=== PATIENT | female | born 1960 | race African-American/Black ===

== ENCOUNTER 2021-04-06 11:28 | Observation (INO) | payer OTHER ==
--- OUTSIDE RECORDS SUMMARY | 2021-04-06 11:33 | XMS REPORT | Continuity of Care Document ---
:1960 Author Organization [facility] t Address [address] [place] [address] Care Team Providers Name Role Phone Neptali Rosado Attending Clinician Unavailable MANDIE Attending Clinician Unavailable MANDIE Attending Clinician Unavailable Joseph PENA Attending Clinician Unavailable Doctor Unassigned, Name Attending Clinician Unavailable SANGITA PENNY Attending Clinician Unavailable CHERYL RAM Attending Clinician Unavailable [place] Penny MD Attending Clinician Cheryl Ram MD Attending Clinician Pcp-Lab Attending Clinician Unavailable Payers Payer Name Policy Type Policy Number Effective Date Expiration Date Sunshine baum [facility] Vino Volo [id number] 2020 00:00:00 SPRING Problems Condition Condition Condition Status Onset Resolution Last Treating Co mments Source Name Details Category Date Date Treatment Clinician Date Scleroderm Scleroderm Disease Active 2019-0 U nivers a a 1-10 ity of 00:00: [address] Skin Skin Disease Active 2019-0 Univers thickening thickening 1-10 it y of 00:00: [address] Contracept Contracept Disease Active 2015- [place] Well woman Well woman Disease Active 2015- U nivers exam exam 07-19 ity of 00:00: [address] Contracept Contracept Disease Active 2015[place] [address] [place] [address] History of History of Disease Active 2015-0 U nivers tubal tubal 07-19 ity of ligation ligation 00:00: [place] 00 [facility] Obese Obese Disease Active Univers 5-31 ity of 00:00: [place] 00 [facility] Allergies, Adverse Reactions, Alerts Allergy Allergy Status Severity Reaction(s) Onset Inactive Treating Comm ents Source Name Type Date Date Clinician NO KNOWN Drug Active Univers ALLERGIE Class ity of S [facility] Social History Social Habit Start Date Stop Date Quantity Comments Source Exposure to Not sure [facility] SARS-CoV-2 [facility] (event) Branch Tobacco use and 2020-07-30 2020-07-30 Never used Universit y of exposure 00:00:00 00:00:00 [facility] Alcohol intake 2020-07-30 2020-07-30 Current University 00:00:00 00:00:00 non-drinker of [facility] alcohol [place] (finding) Sex Ass[birth year] At [birth year] Universit y of 00:00:00 00:00:00 [facility] Smoking Status Start Date Stop Date Source Never smoker [facility] Medications Ordered Filled Start Stop Current Ordering Indication Dosage Frequency Signature Comments Components Source Medication Medication Date Date Medication? Clinician (SIG) Name Name amLODIPine Yes [id number] 5mg Take 1 Univers 5 mg tablet 6-11 tablet by ity of 00:00: mouth [place] 00 daily. Medical Branch omeprazole Yes [id number] 20mg Take 1 Univers 20 mg 6-11 capsule by ity of capsule 00:00: mouth [place] 00 daily. Medical Branch amLODIPine Yes [id number] 5mg Take 1 Univers 5 mg tablet 6-11 tablet by ity of 00:00: mouth [place] 00 daily. Medical Branch omeprazole Yes [id number] 20mg Take 1 Univers 20 mg 6-11 capsule by ity of capsule 00:00: mouth [place] 00 daily. Medical Branch amLODIPine Yes [id number] 5mg Take 1 Univers 5 mg tablet 6-11 tablet by ity of 00:00: mouth [place] 00 daily. Medical Branch omeprazole Yes [id number] 20mg Take 1 Univers 20 mg 6-11 capsule by ity of capsule 00:00: mouth [place] 00 daily. Medical Branch amLODIPine Yes [id number] 5mg Take 1 Univers 5 mg tablet 6-11 tablet by ity of 00:00: mouth [place] 00 daily. Medical Branch omeprazole 2020-0 Yes [id number] 20mg Take 1 Univers 20 mg 6-11 capsule by ity of capsule 00:00: mouth [place] 00 daily. Medical Branch amLODIPine 2020-0 Yes [id number] 5mg Take 1 Univers 5 mg tablet 6-11 tablet by ity of 00:00: mouth [place] 00 daily. Medical Branch omeprazole 2020-0 Yes [id number] 20mg Take 1 Univers 20 mg 6-11 capsule by ity of capsule 00:00: mouth [place] 00 daily. Medical Branch amLODIPine 2020-0 Yes [id number] 5mg Take 1 Univers 5 mg tablet 6-11 tablet by ity of 00:00: mouth [place] 00 daily. Medical Branch omeprazole 2020-0 Yes [id number] 20mg Take 1 Univers 20 mg 6-11 capsule by ity of capsule 00:00: mouth [place] 00 daily. Medical Branch amLODIPine 2020-0 Yes [id number] 5mg Take 1 Univers 5 mg tablet 6-11 tablet by ity of 00:00: mouth [place] 00 daily. Medical Branch omeprazole 2020-0 Yes [id number] 20mg Take 1 Univers 20 mg 6-11 capsule by ity of capsule 00:00: mouth [place] 00 daily. Medical Branch amLODIPine 2020-0 Yes [id number] 5mg Take 1 Univers 5 mg tablet 6-11 tablet by ity of 00:00: mouth [place] 00 daily. Medical Branch omeprazole 2020-0 Yes [id number] 20mg Take 1 Univers 20 mg 6-11 capsule by ity of capsule 00:00: mouth [place] 00 daily. Medical Branch amLODIPine 2020-0 Yes [id number] 5mg Take 1 Univers 5 mg tablet 6-11 tablet by ity of 00:00: mouth [place] 00 daily. Medical Branch omeprazole 2020-0 Yes [id number] 20mg Take 1 Univers 20 mg 6-11 capsule by ity of capsule 00:00: mouth [place] 00 daily. Medical Branch omeprazole 2018-0 Yes [id number] 20mg Take 1 Univers 20 mg 8-15 capsule by ity of capsule 00:00: mouth [place] 00 daily. Medical Branch amLODIPine 2018-0 Yes [id number] 5mg Take 1 Univers 5 mg tablet 8-15 tablet by ity of 00:00: mouth [place] 00 daily. Medical Branch omeprazole 2019-0 Yes [id number] 20mg Take 1 Univers 20 mg 8-15 capsule by ity of capsule 00:00: mouth [place] 00 daily. Medical Branch amLODIPine 2019-0 Yes [id number] 5mg Take 1 Univers 5 mg tablet 8-15 tablet by ity of 00:00: mouth [place] 00 daily. Medical Branch omeprazole 2019-0 Yes [id number] 20mg Take 1 Univers 20 mg 8-15 capsule by ity of capsule 00:00: mouth [place] 00 daily. Medical Branch amLODIPine 2019-0 Yes [id number] 5mg Take 1 Univers 5 mg tablet 8-15 tablet by ity of 00:00: mouth [place] 00 daily. Medical Branch omeprazole 2018-0 2020- No [id number] 20mg Take 1 Univers 20 mg 8-15 06-11 capsule by ity of capsule 00:00: 00:00 mouth [place] 00 :00 daily. Medical Branch amLODIPine 2018-0 2020- No [id number] 5mg Take 1 Univers 5 mg tablet 8-15 06-11 tablet by it y of 00:00: 00:00 mouth [place] 00 :00 daily. Medical Branch omeprazole 2018-0 2020- No [id number] 20mg Take 1 Univers 20 mg 8-15 06-11 capsule by ity of capsule 00:00: 00:00 mouth [place] 00 :00 daily. Medical Branch amLODIPine 2018-0 2020- No [id number] 5mg Take 1 Univers 5 mg tablet 8-15 06-11 tablet by it y of 00:00: 00:00 mouth [place] 00 :00 daily. Medical Branch omeprazole 2018-0 2020- No [id number] 20mg Take 1 Univers 20 mg 8-15 06-11 capsule by ity of capsule 00:00: 00:00 mouth [place] 00 :00 daily. Medical Branch amLODIPine 2018-0 1- No [id number] 5mg Take 1 Univers 5 mg tablet 8-15 06-11 tablet by it y of 00:00: 00:00 mouth [place] 00 :00 daily. Medical Branch omeprazole 2018-0 2020- No [id number] 20mg Take 1 Univers 20 mg 8-15 06-11 capsule by ity of capsule 00:00: 00:00 mouth [place] 00 :00 daily. Medical Branch amLODIPine 2018-0 1- No [id number] 5mg Take 1 Univers 5 mg tablet 8-15 06-11 tablet by it y of 00:00: 00:00 mouth [place] 00 :00 daily. Medical Branch omeprazole 2018-2020- No [id number] 20mg Take 1 Univers 20 mg 8-15 06-11 capsule by ity of capsule 00:00: 00:00 mouth [place] 00 :00 daily. Medical Branch amLODIPine 2018-2020- No [id number] 5mg Take 1 Univers 5 mg tablet 8-15 06-11 tablet by it y of 00:00: 00:00 mouth [place] 00 :00 daily. Medical Branch omeprazole 2018-2020- No [id number] 20mg Take 1 Univers 20 mg 8-15 06-11 capsule by ity of capsule 00:00: 00:00 mouth [place] 00 :00 daily. Medical Branch amLODIPine 2018-2020- No [id number] 5mg Take 1 Univers 5 mg tablet 8-15 -11 tablet by it y of 00:00: 00:00 mouth [place] 00 :00 daily. Medical Branch traMADOL 50 2019-0 Yes 50mg Take 50 mg Univers mg tablet 1-10 by mouth ity of 16:18: every 6 [place] 02 (six) Medical hours as Branch needed. traMADOL 50 2019-0 Yes 50mg Take 50 mg Univers mg tablet 1-10 by mouth ity of 16:18: every 6 [place] 02 (six) Medical hours as Branch needed. traMADOL 50 2019-0 Yes 50mg Take 50 mg Univers mg tablet 1-10 by mouth ity of 16:18: every 6 [place] 02 (six) Medical hours as Branch needed. traMADOL 50 2019-0 Yes 50mg Take 50 mg Univers mg tablet 1-10 by mouth ity of 16:18: every 6 [place] 02 (six) Medical hours as Branch needed. traMADOL 50 2019-0 Yes 50mg Take 50 mg Univers mg tablet 1-10 by mouth ity of 16:18: every 6 [place] 02 (six) Medical hours as Branch needed. traMADOL 50 2019-0 Yes 50mg Take 50 mg Univers mg tablet 1-10 by mouth ity of 16:18: every 6 [place] 02 (six) Medical hours as Branch needed. traMADOL 50 2019-0 Yes 50mg Take 50 mg Univers mg tablet 1-10 by mouth ity of 16:18: every 6 [place] 02 (six) Medical hours as Branch needed. traMADOL 50 2019-0 Yes 50mg Take 50 mg Univers mg tablet 1-10 by mouth ity of 16:18: every 6 [place] 02 (six) Medical hours as Branch needed. traMADOL 50 2019-0 Yes 50mg Take 50 mg Univers mg tablet 1-10 by mouth ity of 16:18: every 6 [place] 02 (six) Medical hours as Branch needed. traMADOL 50 2019-0 Yes 50mg Take 50 mg Univers mg tablet 1-10 by mouth ity of 16:18: every 6 [place] 02 (six) Medical hours as Branch needed. traMADOL 50 2019-0 Yes 50mg Take 50 mg Univers mg tablet 1-10 by mouth ity of 16:18: every 6 [place] 02 (six) Medical hours as Branch needed. traMADOL 50 2019-0 Yes 50mg Take 50 mg Univers mg tablet 1-10 by mouth ity of 16:18: every 6 [place] 02 (six) Medical hours as Branch needed. traMADOL 50 2019-0 Yes 50mg Take 50 mg Univers mg tablet 1-10 by mouth ity of 16:18: every 6 [place] 02 (six) Medical hours as Branch needed. amLODIPine 2019- Yes [id number] 5mg Take 1 Univers 5 mg tablet 1-10 tablet by ity of 00:00: mouth [place] 00 daily. Medical Branch omeprazole Yes [id number] 20mg Take 1 Univers 20 mg 1-10 capsule by ity of capsule 00:00: mouth [place] 00 daily. Medical Branch amLODIPine 2019- No [id number] 5mg Take 1 Univers 5 mg tablet 1-10 08-15 tablet by it y of 00:00: 00:00 mouth [place] 00 :00 daily. Medical Branch omeprazole 2019- No [id number] 20mg Take 1 Univers 20 mg 1-10 08-15 capsule by ity of capsule 00:00: 00:00 mouth [place] 00 :00 daily. Medical Branch amLODIPine 2019- No [id number] 5mg Take 1 Univers 5 mg tablet 1-10 08-15 tablet by it y of 00:00: 00:00 mouth [place] 00 :00 daily. Medical Branch omeprazole 2019- No [id number] 20mg Take 1 Univers 20 mg 1-10 08-15 capsule by ity of capsule 00:00: 00:00 mouth [place] 00 :00 daily. Medical Branch Immunizations Ordered Filled Immunization Date Status Comments [facility] e Immunization Name Name [facility] 2015-07-20 Completed University of 00:00:00 [facility] 2015-07-20 Completed University of 00:00:00 [facility] TD 2015-07-20 Completed University of 00:00:00 [facility] TD 2015-07-20 Completed University of 00:00:00 [facility] 2015-07-20 Completed University of 00:00:00 [facility] 2015-07-20 Completed University of 00:00:00 [facility] 2015-07-20 Completed University of 00:00:00 [facility] TDAP 2015-07-20 Completed University of 00:00:00 [facility] 2015-07-20 Completed University of 00:00:00 [facility] 2015-07-20 Completed University of 00:00:00 [facility] 2015-07-20 Completed University of 00:00:00 [facility] 2015-07-20 Completed University of 00:00:00 [facility] 2015-07-20 Completed University of 00:00:00 [facility] Vital Signs Vital Name Observation Time Observation Value Comments Source Heart rate 2020-07-29 15:33:00 75 /min [facility] Body temperature 2020-07-29 15:33:00 36.22 Toshia [facility] Respiratory rate 2020-07-29 15:33:00 18 /min [facility] Body height 2020-07-29 15:33:00 170.2 cm [facility] Body weight 2020-07-29 15:33:00 94.802 kg [facility] BMI 2020-07-29 15:33:00 32.73 kg/m2 [facility] Oxygen saturation in 2020-07-29 15:33:00 96 /min room air University Arterial blood by [facility] Pulse oximetry Branch Systolic blood 2018-10-03 15:23:00 137 mm[Hg] Univer sity of pressure [facility] Diastolic blood 2018-10-03 15:23:00 86 mm[Hg] Unive rsity of pressure [facility] Heart rate 2018-10-03 15:23:00 101 /min [facility] Body temperature 2018-10-03 15:23:00 36.33 Toshia [facility] Respiratory rate 2018-10-03 15:23:00 16 /min [facility] Body height 2018-10-03 15:23:00 170.2 cm [facility] Body weight 2018-10-03 15:23:00 95.936 kg [facility] BMI 2018-10-03 15:23:00 33.13 kg/m2 [facility] Oxygen saturation in 2018-10-03 15:23:00 100 /min [facility] blood by [facility] Pulse oximetry Branch Procedures Procedure Date / Time Performed Performing Clinician [facility] lucita PULMONARY FUNCTION 2020-09-13 17:49:10 Doctor Unassigned, No [facility] TEST (RESULTS) [facility] CT THORAX WO CONTRAST 2020-08-17 19:33:41 Milad Penny U [facility] NOTICE OF PRIVACY 2020-08-17 19:01:43 Doctor Unassigned, No [facility] PRACTICES [facility] CONSENT/REFUSAL FOR 2020-08-17 18:58:43 Doctor Unassigned, No [facility] DIAGNOSIS AND [facility] TREATMENT ASSIGNMENT OF BENEFITS 2020-08-17 18:58:24 Doctor Unassigned, No [facility] XR HAND 3+ VW 2020-07-29 17:12:15 Milad Penny [facility] BILATERAL [facility] PATIENT FINANCIAL 2018-10-03 15:12:03 Doctor Unassigned, No [facility] POLICY [facility] Encounters Start End Encounter Admission Attending Care Care Encounter Source Date/Time Date/Time Type Type Clinicians Facility Department ID 2021-03-16 Outpatient Shereen Rosado [facility] [id number] 14:24:19 [id number] [facility] 2021-03-16 Outpatient Shereen Roasdo [facility] [id number] 14:21:32 [id number] [facility] 2021-03-16 Outpatient Shereen Rosado [facility] [id number] 14:01:01 [id number] [facility] 2021-03-16 Outpatient Rosado, Na [facility] [id number] 13:56:51 [id number] [facility] 2021-03-16 Outpatient Rosado, Na [facility] [id number] 13:47:23 [id number] [facility] 2021-03-16 Outpatient Rosado, Na [facility] [id number] 13:13:12 [id number] [facility] 2021-03-16 Outpatient Rosado, Na [facility] [id number] 12:42:20 [id number] [facility] 2021-03-23 2021-03-23 ambulatory [facility] [id number] [facility] 2021-03-02 2021-03-02 ambulatory [facility] [id number] [facility] 2021-01-25 2021-01-25 ambulatory [facility] [id number] [facility] 2020-11-25 2020-11-25 Outpatient [facility] [id number] [facility] 2020-10-14 2020-10-14 Outpatient R TETE LOCKWOOD [facility] [id number] Univers 15:00:00 15:00:00 TETE LOCKWOOD [id number] [facility] 2020-09-13 2020-09-13 Outpatient R [facility] [id number] Univers 14:00:00 14:00:00 [id number] [facility] 2020-09-13 2020-09-13 Outpatient R BECKY [facility] [id number] Univers 14:00:00 14:00:00 NORY [facility] 2020-09-13 2020-09-13 Orders Doctor JOYCE [id number] Univers 00:00:00 00:00:00 Only Unassigned, [place] [id number] [facility] [id number] [facility] [id number] [facility] 009 Branch 2020-08-26 2020-08-26 Outpatient R ZOHAIB, [facility] [id number] Univers 10:00:00 10:00:00 MILAD [id number] ity [facility] 2020-08-26 2020-08-26 Outpatient R ZOHAIB, [facility] [id number] Univers 10:00:00 10:00:00 MILAD [facility] 2020-08-24 2020-08-24 Outpatient R SUKI [facility] [id number] Univers 09:00:00 09:00:00 ZAHIRA [id number] ity o [facility] 2020-08-24 2020-08-24 Outpatient R SUKI, [facility] [id number] Univers 09:00:00 09:00:00 [facility] 2020-08-17 2020-08-17 Outpatient R ZOHAIB, [facility] [id number] Univers 16:00:00 16:00:00 MILAD [id number] [facility] 2020-08-17 2020-08-17 [facility] [id number] Univers 13:59:36 15:22:00 Encounter Milad Valdez [id number] ity of [facility] [id number] [facility] [id number] [facility] 801 Branch 2020-08-17 2020-08-17 [facility] [id number] Univers 00:00:00 00:00:00 [facility]-11 2020-08-11 Out[facility] [id number] [facility] 2020-08-09 2020-08-09 Case LUZ RamIT [id number] Univers 00:00:00 00:00:00 Management [facility] [id number] ity [id number] [id number] [facility] 084 Branch 2020-07-30 2020-07-30 Outpatient [facility] [id number] [facility] [facility] 2020-07-30 2020-07-30 Outpatient [facility] [id number] [facility] [facility] 2020-07-29 2020-07-29 [facility] [id number] [facility] 11:41:19 23:59:00 Encounter Milad PRIMARY [id number] ity [id number] [id number] De dical 807 Branch 2020-07-29 2020-07-29 Clinical Appeals Auditor Pcp-Lab [facility] [id number] [facility] 11:05:28 11:20:28 Visit Milad Penny [place] PRIMARY [id number] 10 it[id number] [id number] De dical 366 Branch 2020-07-29 2020-07-29 [facility] [id number] [facility] 10:11:15 10:31:15 Visit Milad PRIMARY [id number] it y [id number] [id number] De dical 086 Branch 2020-07-29 2020-07-29 [facility] [id number] Univers 10:20:00 10:20:00 MILAD [id number] ity of [facility] 2020-07-29 2020-07-29 [facility] [id number] Univers 10:20:00 10:20:00 MILAD ity of [facility] 2020-04-23 2020-04-23 Outpatient [facility] [id number] [facility] 00:[facility] 00:[facility]:00 Diamond abdi Outpati ent Clinics 2018-10-03 2018-10-03 Office Zohaib, [facility] [id number] Univers 10:15:09 11:11:32 Visit Milad PRIMARY [id number] it y [id number] [id number] De dical 6 Branch 2018-10-03 2018-10-03 Orders Doctor JOYCE [id number] Univers 00:00:00 00:00:00 Only Unassigned, [place] [id number] ity [place] [facility] [id number] [place] [id number] [address] Results Test Description Test Time Test Comments Results Result Comments Source PULMONARY FUNCTION TEST (RESULTS) 2020-09-13 17:49:10 Test Item Value Reference Range Interpretation Comme nts FVC Actual (test code = 3994) 1.70 L FEV1 Actual (test code = 3993) 1.48 L FEV1/FVC Actual (test code = 3995) 87 % [facility] [id number] 20:51:47 1. Pattern of fibrosing lung disease suspicious for fibrotic NSIP with orwithout patchy areas of organizing pneumonia, in keeping with CTD-ILD. 2. Scattered subcentimeter nodularity, intermingled with the areas ofreticulation, likely a component of the fibrosing lung disease. Attentionon follow-up. At this time no definite dominant nodules. 3. Diffuse patulous esophagus, associated with the underlyingcollagen-vascular disease. No significant hiatal hernia 4. No definite signs of pulmonary hypertension. 5. Mildly prominent bilateral axillary nodes, left greater than right,likely reactive.PROCEDURE: CT CHEST WITHOUT CONTRAST - CHEST PROTOCOL CLINICAL INDICATION: Systemic sclerosis [scleroderma] HIGH RESOLUTION CTscan thorax Comparison: ?Chest radiograph dated 07/29/2020 TECHNIQUE: Volumetric images of the chest were acquired (from lung apicesto bases) following a high resolution protocol: Supine inspiratory,expiratory images as well as prone inspiratory images were submitted forinterpretation.MIP axial images, coronal and sagittal reformats were alsosubmitted for interpretation Axial MIPs and coronal and sagittal MPR imageswere generated and reviewed.. FINDINGS: LUNGS AND PLEURA: The lung volumes are low. The patient has multiple patchyareas of peripheral irregular peribroncho- vascular no dularity andreticulation. Mild traction bronchiectasis and bronchiolectasis are notedparticularly inthe peridiaphragmatic regions. No honeycombing. No definite discrete pulmonary nodules. No consolidation. No pleuraleffusions. The expiratory images revealNo significant mosaic attenuation LYMPH NODES:Scattered small lymph nodes in both sides of the mediastinumand hilar regions. No evidence of intrathoracic lymphadenopathy. Mildlyprominent lymph nodes in the axillary regions up to 1 cm in short axis. MEDIASTINUM AND LOWER NECK: No central airway lesions are detected. Severepatulous esophagus. The included thyroid gland appears normal. HEART AND GREAT VESSELS: The heart is normal in size. No pericar dialabnormalities are identified. The RV to LV is normal. The pulmonary trunkis 2.9 cm. The thoracicaorta is normal in caliber, minimal atherosclerotic calcifiedplaque.No significant atherosclerotic calcifications of the coronaryvessels. The pulmonary trunk is normal in caliber. VISUALIZED UPPER ABDOMEN: The included solid organs and hollow viscusappear within normal limits. OSSEOUS STRUCTURES AND SOFT TISSUES: No focal osseous lesions are detected.The soft tissues including the breasts appear normal. [facility], Radiant Results Inft User - 08/17/2020 3:52 PM CDT PROCEDURE: CT CHEST WITHOUT CONTRAST - CHEST PROTOCOLCLINICAL INDICATION: Systemic sclerosis [scleroderma] HIGH RESOLUTION CTscan thorax Comparison: Chest radiograph dated 07/29/2020TECHNIQUE: Volumetric images of the chest were acquired (from lung apicesto bases) following a highresolution protocol: Supine inspiratory,expiratory images as well as prone inspiratory images were submitted forinterpretation. MIP axial images, coronal and sagittal reformats were alsosubmitted for interpretation Axial MIPs and coronal and sagittal MPR imageswere generated and reviewed..FINDINGS:LUNGS AND PLEURA: The lung volumes are low. The patient has multiple patchyareas of peripheral irregularperibroncho- vascular nodularity andreticulation. Mild traction bronchiectasis and bronchiolectasis are notedparticularly in the peridiaphragmatic regions. No honeycombing.No definite discrete pulmonary nodules. No consolidation. No pleuraleffusions.The expiratory images revealNo significant mosaic attenuationLYMPH NODES: Scattered small lymph nodes in both sides of the mediastinumand hilar regions. No evidence of intrathoracic lymphadenopathy. Mildlyprominent lymph nodes in the axillary regions up to 1 cm in short axis.MEDIASTINUM AND LOWER NECK: No central airway lesions are detected. Severepatulous esophagus. The included thyroid gland appears normal.HEART AND GREAT VESSELS: The heart is normalin size. No pericardialabnormalities are identified. The RV to LV is normal. The pulmonary trunkis 2.9 cm.The thoracic aorta is normal in caliber, minimal atherosclerotic calcifiedplaque.No significantatherosclerotic calcifications of the coronaryvessels. The pulmonary trunk is normal in caliber.VISUALIZED UPPER ABDOMEN: The included solid organs and hollow viscusappear within normal limits.OSSEOUS STRUCTURES AND SOFT TISSUES: No focal osseous lesions are detected.The soft tissues including the breasts appear normal.IMPRESSION1. Pattern of fibrosing lung disease suspicious for fibrotic NSIP with orwithout patchy areas of organizing pneumonia, in keeping with CTD-ILD.2. Scattered subcentimeter nodularity, intermingled with the areas ofreticulation, likely a component of the fibrosing lung disease. Attentionon follow-up. At this time no definite dominant nodules.3. Diffuse patulous esophagus, associated with the underlyingcollagen-vascular disease. No significant hiatal hernia4. No definite signs of pulmonary hypertension.5. Mildly prominent bilateral axillary nodes, left greater than right,likely reactive.[facility] [id number] 19:32:58Impression: Diffuse bilateral acro- osteolysis. End of Report. RL: [id number] Ordering Physician: MILAD PENNY. Procedure: XR HAND 3+ VW BILATERAL Comparison: None. History: for acro osteolysis, thanks . Findings: Well-corticated absence of most of the portions of the distal phalangesthroughout both hands consistent with the history of acro-osteolysis. 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 No fracture, dislocation, or bony erosion is identified. [facility], Radiant Results Inft User - 07/29/2020 2:34 PM CDT Ordering Physician: MILAD PENNY.Procedure: XR HAND 3+ VW BILATERALComparison: None.History: for acro osteolysis, thanks . Findings:Well-corticated absence of most of the portions of the distal phalangesthroughout both hands consistent with the history of acro-osteolysis. 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 [facility]
--- NOTE | 2021-04-06 15:09 | RAD REPORT ---
EXAM DESCRIPTION: RAD - Chest Single View - 04/06/2021 3:03 pm CLINICAL HISTORY: CHEST PAIN COMPARISON: Abdomen Pelvis W Contrast dated 03/23/2021 FINDINGS: Lines: None. Lungs: Bilateral interstitial and airspace disease. Pleural: Small effusions difficult to exclude. Cardiac: The heart size is within normal limits. Bones: No acute fractures. Other: IMPRESSION: Widespread bilateral airspace disease favored to represent pulmonary edema. Multifocal p neumonia less likely.
[2021-04-06 15:20] LABS: ALT/SGPT 28 U/L (12-78); AST/SGOT 29 U/L (15-37); Albumin 3.2 g/dL (3.4-5.0); Alkaline Phosphatase 72 U/L (45-117); BUN Blood Urea Nitrogen 15 mg/dL (7-18); Bicarbonate 24 mmol/L (21-32); Bilirubin Direct < 0.1 mg/dL (0-0.2); Bilirubin Total 0.3 mg/dL (0.2-1.0); Glucose Level 100 mg/dL (74-106); Magnesium 2.2 mg/dL (1.8-2.4); NT PRO-BNP 484 pg/mL (<125); Potassium 3.6 mmol/L (3.5-5.1); Sodium Level 141 mmol/L (136-145)
[2021-04-06 15:24] LABS: MPV 8.9 fL (7.6-11.3)
[2021-04-06 15:46] LABS: Protime INR 1.15
--- NOTE | 2021-04-06 15:52 | RAD REPORT ---
EXAM DESCRIPTION: CT - Chest For Pe Angio - 04/06/2021 3:35 pm CLINICAL HISTORY: Chest pain;Hemoptysis;SOB COMPARISON: No comparisons FINDINGS: Chest Wall: Enlarged axillary lymph nodes. Largest on the left measures 9 millimeters. Lungs: Scattered bilateral ground-glass opacities. Honeycombing in subpleural reticulation bilaterall y. Pleura: No significant effusions or pneumothorax. Mediastinum/cruz: Prominent hilar lymph nodes. Patulous distal esophagus. Pulmonary arteries/Aorta: No filling defect identified. No aortic aneurysm. Heart: No significant pericardial effusion. Normal heart size. Upper abdomen: No acute abnormality. Bones: No acute abnormality. All CT scans are performed using dose optimization technique as appropriate and may include automated exposure control or mA/KV adjustment according to patient size. IMPRESSION: Negative for pulmonary embolism. Background of chronic interstitial lung disease such as usual interstitial pneumonia (UIP) . Ground-glass opacities are noted which could reflect either sup erimposed infection, such as Covid-19, for an exacerbation. Hilar and axillary adenopathy may be reactive.
[2021-04-06 15:57] LABS: Blood Morphology Comment NOTED (NOT SEEN); Hypochromasia 1+; Platelet Estimate ADEQ
--- NOTE | 2021-04-06 16:54 | RAD REPORT ---
EXAM DESCRIPTION: US - Extrem Venous W Compress Vincenzo - 04/06/2021 4:48 pm CLINICAL HISTORY: Swelling COMPARISON: None. TECHNIQUE: Real-time sonographic evaluation of the bilateral lower extremity deep venous systems was performed. FINDINGS: Normal compressibility, flow augmentation, phasic flow and spontaneous flow is identified in both the left and right lower extremity deep venous systems. No intraluminal filling defects seen. IMPRESSION: No DVT in either lower extremity.
[2021-04-06] MEDS ORDERED: CEFTRIAXONE 1000 MG/VIAL ONE (17:44)
[2021-04-06] MEDS ORDERED: AZITHROMYCIN 500 MG INJ IVPB ONE (17:44)
[2021-04-06] MEDS ORDERED: NA CHLORIDE 0.9% 100 ML IV ONE (17:44)
[2021-04-06] MEDS ORDERED: FUROSEMIDE 20 MG/ 2ML VIAL ONE (17:44)
[2021-04-06] MEDS ORDERED: NA CHLORIDE 0.9% 250 ML ONE (17:44)
[2021-04-06 18:14] LABS: SARS-COV-2 RT PCR NEGATIVE (NEGATIVE)
--- NOTE | 2021-04-06 18:15 | ER ---
Nurse's Notes [facility] Name: Lissa Rivas Age: 60 yrs Sex: Female : 1960 Arrival Date: 04/06/2021 Time: 11:31 Bed 24 Private MD: Shereen Rosado Diagnosis: Chest pain, unspecified;Shortness of breath;Hemoptysis Presentation: 04/06 12:44 Chief complaint: Patient states: I think I messed up on taking my medicine yesterday jg9 morning I got hot and started coughing up blood x 3 episodes. I think it was because of my medicine because it says not to take with milk and I did (Flagyl \\T\\ Cipro). I called my PCP this morning and sh advised me to come to the ED. I am also having heaviness in my chest 07/29 and feel congested but I can't cough it up. Patient did not take the medication today. Coronavirus screen: Vaccine status: Patient reports receiving the 2nd dose of the covid vaccine. Ebola Screen: Patient negative for fever greater than or equal to 101.5 degrees Fahrenheit, and additional compatible Ebola Virus Disease symptoms Patient denies exposure to infectious person. Patient denies travel to an Ebola-affected area in the 21 days before illness onset. Initial Sepsis Screen: Does the patient meet any 2 criteria? HR > 90 bpm. Yes Does the patient have a suspected source of infection? No. Patient's initial sepsis screen is negative. Risk Assessment: Do you want to hurt yourself or someone else? Patient reports no desire to harm self or others. Onset of symptoms was April 06, 2021 at 01:00. 12:44 Method Of Arrival: Ambulatory 9 12:44 Acuity: JAMMIE 3 jg9 Triage Assessment: 12:48 General: Appears in no apparent distress. Behavior is calm. Pain: Complains of pain in jg9 chest. Historical: - Allergies: 12:48 Cymbalta; jg9 - PMHx: 12:48 Raynauds; jg9 - Immunization history:: Client reports receiving the 2nd dose of the Covid vaccine, Pneumococcal vaccine is not up to date, Flu vaccine is not up to date. - Social history:: Smoking status: Patient denies any tobacco usage or history of. Screenin:48 Abuse screen: Denies threats or abuse. Denies injuries from another. Nutritional jg9 screening: No deficits noted. Tuberculosis screening: No symptoms or risk factors identified. Fall Risk None identified. Assessment: 14:10 General: Appears in no apparent distress. comfortable, Behavior is calm, cooperative, cb5 appropriate for age. Pain: Complains of pain in chest Pain currently is 3 out of 10 on a pain scale. Neuro: No deficits noted. Cardiovascular: No deficits noted. Respiratory: No deficits noted. GI: No deficits noted. : No deficits noted. EENT: No deficits noted. Derm: No deficits noted. Musculoskeletal: No deficits noted. 15:00 Reassessment: Patient and/or family updated on plan of care and expected duration. Pain cb5 level reassessed. Patient is alert, oriented x 3, equal unlabored respirations, skin warm/dry/pink. 15:30 General: pt left ER department. cb5 16:51 General: pt arrived back to ER room # 19, obtained Covid 19 specimen sent to lab.. cb5 20:50 Reassessment: Patient and/or family updated on plan of care and expected duration. Pain ll3 level reassessed. Patient is alert, oriented x 3, equal unlabored respirations, skin warm/dry/pink. Vital Signs: 12:44 BP 182 / 93; Pulse 105; Resp 20 S; Temp 97.9; Pulse Ox 98% on R/A; Weight 97.52 kg (R); jg9 Height 5 ft. 7 in. (170.18 cm) (R); 16:57 BP 161 / 98; Pulse 100; Resp 16; Pulse Ox 98% ; Pain 0/10; cb5 18:00 BP 172 / 96; Pulse 110; Resp 16; Pulse Ox 98% ; Pain 0/10; cb5 19:00 BP 135 / 72; Pulse 105; Resp 23; Pulse Ox 100% ; ll3 20:00 BP 139 / 87; Pulse 96; Resp 17; Pulse Ox 99% ; ll3 12:44 Body Mass Index 33.67 (97.52 kg, 170.18 cm) jg9 ED Course: 11:31 Patient arrived in ED. mr 11:32 Shereen Rosado MD is Private Physician. mr 12:48 Triage completed. jg9 12:49 Arm band placed on right wrist. jg9 14:09 Emili Vallejo, RN is Primary Nurse. cb5 14:10 No provider procedures requiring assistance completed. cb5 14:11 Vinicius Dominique PA is PHCP. cp 14:11 Russ Hill MD is Attending Physician. cp 14:23 Bed in low position. Call light in reach. Side rails up X 1. cb5 14:35 Initial lab(s) drawn, by me, sent to lab. Inserted saline lock: 20 gauge in right kv1 antecubital area, using aseptic technique. 15:03 XRAY Chest (1 view) In Process Unspecified. EDMS 15:35 CT Chest For PE Angio In Process Unspecified. EDMS 16:30 US Extremity Venous W Compression Vincenzo In Process Unspecified. EDMS 16:57 COVID-19/FLU A+B (Document "Date of Onset" if Symptomatic) Sent. cb5 16:57 COVID swab sent to lab. kv1 17:35 First set of blood cultures drawn by me. kv1 18:00 Second set of blood cultures drawn by me. kv1 18:13 Jerson Vizcaino MD is Hospitalizing Provider. cp 18:29 Blood Culture Adult (2) Sent. cb5 19:07 Report given to Jorge L Ramirez cb5 Administered Medications: 17:50 Drug: Lasix (furosemide) 20 mg Route: IVP; Site: right antecubital; cb5 20:34 Follow up: Response: No adverse reaction ll3 18:01 Drug: Rocephin - (cefTRIAXone) 1 grams Route: IVPB; Infused Over: 30 mins; Site: right cb5 antecubital; 18:29 Drug: Zithromax (azithromycin) 500 mg Route: IVPB; Infused Over: 1 hrs; Site: right cb5 antecubital; 20:34 Follow up: Response: No adverse reaction; IV Status: Completed infusion; IV Intake: ll3 100ml 19:53 Drug: Albuterol - atroVENT (ipratropium) (3:1) (2.5 mg - 0.5 mg) 3 ml Route: Nebulizer; ll3 20:33 Follow up: Response: No adverse reaction; Marked relief of symptoms ll3 Intake: 20:34 IV: 100ml; Total: 100ml. ll3 Outcome: 18:14 Decision to Hospitalize by Provider. cp 04/07 16:14 Patient left the ED. Signatures: Dispatcher [employer] Mary Layton mr KentonRee, RN RN ss Vinicius Dominique PA PA cp Loubet, Lynsea, RN RN ll3 Cheryl Maradiaga RN RN jg9 Stephane Ashby kv1 Emili Vallejo RN RN cb5 Corrections: (The following items were deleted from the chart) 04/06 12:55 12:44 Chief complaint: Patient states: I think I messed up on taking my medicine this jg9 morning I got hot and started coughing up blood x 3 episodes. I think it was because of my medicine because it says not to take with milk and I did (Flagyl \\T\\ Cipro). I am having heaviness in my chest and feel congested but I can't cough it up. jg9 18:07 14:43 Lab(s) recollected, by me, sent to lab. First set of blood cultures drawn Second kv1 set of blood cultures drawn by me, kv1
--- NOTE | 2021-04-06 18:15 | EDPHYS ---
Physician Documentation [facility] Name: Lissa Rivas Age: 60 yrs Sex: Female : 1960 Arrival Date: 04/06/2021 Time: 11:31 Bed 24 Private MD: Shereen Rosado ED Physician Russ Hill HPI: 04/06 14:20 This 60 yrs old Black Female presents to ER via Ambulatory with complaints of Cough. cp 14:20 The patient or guardian reports cough, that is intermittent, with productive sputum, cp that is bloody. Onset: The symptoms/episode began/occurred this morning. 14:20 Associated signs and symptoms: Pertinent positives: chest pain, shortness of breath, cp Pertinent negatives: diarrhea, sore throat, vomiting. 14:20 Severity of symptoms: in the emergency department the symptoms are unchanged, despite cp home interventions. Historical: - Allergies: 12:48 Cymbalta; jg9 - PMHx: 12:48 Raynauds; jg9 - Immunization history:: Client reports receiving the 2nd dose of the Covid vaccine, Pneumococcal vaccine is not up to date, Flu vaccine is not up to date. - Social history:: Smoking status: Patient denies any tobacco usage or history of. ROS: 14:25 Constitutional: Negative for body aches, chills, fever, poor PO intake. cp 14:25 ENT: Negative for drainage from ear(s), ear pain, sore throat, difficulty swallowing, cp difficulty handling secretions. 14:25 Cardiovascular: Positive for chest pain, Negative for edema, palpitations. 14:25 Respiratory: Positive for cough, hemoptysis, Negative for wheezing. 14:25 Abdomen/GI: Negative for abdominal pain, nausea, vomiting, and diarrhea. 14:25 Back: Negative for radiated pain. 14:25 Neuro: Negative for altered mental status, headache, weakness. 14:25 All other systems are negative. cp Exam: 13:00 ECG was reviewed by the Attending Physician. cp 14:30 Constitutional: The patient appears in no acute distress, alert, awake, cp non-diaphoretic, non-toxic, well developed, well nourished. 14:30 Head/Face: Normocephalic, atraumatic. cp 14:30 Eyes: Periorbital structures: appear normal, Conjunctiva: normal, no exudate, no injection, Sclera: no appreciated abnormality, Lids and lashes: appear normal, bilaterally. 14:30 ENT: External ear(s): are unremarkable, Nose: is normal, Mouth: Lips: moist, Oral mucosa: moist, Posterior pharynx: Airway: no evidence of obstruction, patent. 14:30 Neck: ROM/movement: is normal, is supple, without pain, no range of motions limitations. 14:30 Chest/axilla: Inspection: normal. 14:30 Cardiovascular: Rate: tachycardic, Rhythm: regular, Edema: ankle edema, that is very mild, JVD: is not appreciated. 14:30 Respiratory: the patient does not display signs of respiratory distress, Respirations: normal, no use of accessory muscles, no retractions, labored breathing, is not present, Breath sounds: bronchial sounds, that are mild, are heard diffusely. 14:30 Abdomen/GI: Inspection: abdomen appears normal, Palpation: abdomen is soft and non-tender, in all quadrants. 14:30 Back: pain, is absent, ROM is normal. 14:30 Neuro: Orientation: to person, place \\T\\ time. Mentation: is normal, Motor: moves all fours, strength is normal, Sensation: is normal. Vital Signs: 12:44 BP 182 / 93; Pulse 105; Resp 20 S; Temp 97.9; Pulse Ox 98% on R/A; Weight 97.52 kg (R); jg9 Height 5 ft. 7 in. (170.18 cm) (R); 16:57 BP 161 / 98; Pulse 100; Resp 16; Pulse Ox 98% ; Pain 0/10; cb5 18:00 BP 172 / 96; Pulse 110; Resp 16; Pulse Ox 98% ; Pain 0/10; cb5 19:00 BP 135 / 72; Pulse 105; Resp 23; Pulse Ox 100% ; ll3 20:00 BP 139 / 87; Pulse 96; Resp 17; Pulse Ox 99% ; ll3 12:44 Body Mass Index 33.67 (97.52 kg, 170.18 cm) jg9 MDM: 14:12 Patient medically screened. cp 14:30 Differential Diagnosis: Bronchitis Influenza Viral Syndrome Pneumonia Other pulmonary cp embolism, pulmonary edema. 18:00 Data reviewed: vital signs, nurses notes, lab test result(s), EKG, radiologic studies, cp CT scan, plain films, and as a result, I will admit patient. 18:00 Test interpretation: by ED physician or midlevel provider: ECG, plain radiologic cp studies. Counseling: I had a detailed discussion with the patient and/or guardian regarding: the historical points, exam findings, and any diagnostic results supporting the discharge/admit diagnosis, lab results, radiology results, the need for further work-up and treatment in the hospital. 18:15 Physician consultation: Vel Ho was called at 18:10, was contacted at 18:10, regarding admission, to the telemetry unit. patient's condition. 04/06 14:21 Order name: Basic Metabolic Panel; Complete Time: 15:45 cp 04/06 15:45 Interpretation: Normal except: GFR 74; CL 111. cp 04/06 14:21 Order name: CBC with Diff; Complete Time: 17:01 cp 04/06 17:01 Interpretation: Normal except: RBC 4.90; HGB 10.6; HCT 34.0; MCV 69.3; MCH 21.7; MCHC cp 31.3. 04/06 14:21 Order name: LFT's; Complete Time: 15:45 cp 04/06 15:46 Interpretation: Normal except: ALB 3.2; GLOB 4.8; A/G 0.7. cp 04/06 14:21 Order name: Magnesium; Complete Time: 15:45 cp 04/06 14:21 Order name: NT PRO-BNP; Complete Time: 15:45 cp 04/06 15:46 Interpretation: Reviewed. cp 04/06 14:21 Order name: PT-INR; Complete Time: 17:01 cp 04/06 17:03 Interpretation: Reviewed. cp 04/06 14:21 Order name: Troponin HS; Complete Time: 15:45 cp 04/06 14:23 Order name: COVID-19/FLU A+B (Document "Date of Onset" if Symptomatic) cp 04/06 14:24 Order name: COVID-19/FLU A+B; Complete Time: 18:16 EDMS 04/06 15:56 Order name: Manual Differential; Complete Time: 17:01 EDMS 04/06 17:33 Order name: Procalcitonin cp 04/06 17:33 Order name: Lactate cp 04/06 17:33 Order name: Blood Culture Adult (2) cp 04/07 04:45 Order name: CBC with Automated Diff EDMS 04/06 14:21 Order name: XRAY Chest (1 view); Complete Time: 15:45 cp 04/06 15:11 Order name: CT Chest For PE Angio; Complete Time: 17:01 cp 04/06 15:47 Order name: US Extremity Venous W Compression Vincenzo; Complete Time: 17:01 cp 04/07 05:19 Order name: Comprehensive Metabolic Panel EDMS 04/07 05:19 Order name: Lipid Profile EDMS 04/07 05:19 Order name: C-Reactive Protein EDMS 04/07 05:19 Order name: T4 Free EDMS 04/07 05:19 Order name: Thyroid Stimulating Hormone EDMS 04/07 05:19 Order name: Transferrin Sat/Iron Binding EDMS 04/07 05:19 Order name: Ferritin EDMS 04/07 05:46 Order name: Procalcitonin EDMS 04/07 07:31 Order name: RAD EDMS 04/06 13:31 Order name: EKG - Nurse/Tech; Complete Time: 13:31 jg9 04/06 14:21 Order name: EKG; Complete Time: 14:22 cp 04/06 14:21 Order name: Cardiac monitoring; Complete Time: 14:24 cp 04/06 14:21 Order name: IV Saline Lock; Complete Time: 16:56 cp 04/06 14:21 Order name: Labs collected and sent; Complete Time: 16:57 cp 04/06 14:21 Order name: O2 Per Protocol; Complete Time: 16:57 cp 04/06 14:21 Order name: O2 Sat Monitoring; Complete Time: 16:57 cp EC:00 Rate is 102 beats/min. Rhythm is regular. AL interval is normal. QRS interval is cp normal. QT interval is normal. Interpreted by me. Reviewed by me. Administered Medications: 17:50 Drug: Lasix (furosemide) 20 mg Route: IVP; Site: right antecubital; cb5 20:34 Follow up: Response: No adverse reaction ll3 18:01 Drug: Rocephin - (cefTRIAXone) 1 grams Route: IVPB; Infused Over: 30 mins; Site: right cb5 antecubital; 18:29 Drug: Zithromax (azithromycin) 500 mg Route: IVPB; Infused Over: 1 hrs; Site: right cb5 antecubital; 20:34 Follow up: Response: No adverse reaction; IV Status: Completed infusion; IV Intake: ll3 100ml 19:53 Drug: Albuterol - atroVENT (ipratropium) (3:1) (2.5 mg - 0.5 mg) 3 ml Route: Nebulizer; ll3 20:33 Follow up: Response: No adverse reaction; Marked relief of symptoms ll3 Disposition Summary: 04/06/21 18:14 Hospitalization Ordered Hospitalization Status: Observation cp Provider: Jerson Vizcaino cp Condition: Stable cp Problem: new cp Symptoms: have improved cp Bed/Room Type: Standard cp Location: Telemetry/MedSurg (observation)(04/07/21 13:21) bd Room Assignment: 219(04/07/21 13:21) bd Diagnosis - Chest pain, unspecified cp - Shortness of breath cp - Hemoptysis cp Forms: - Medication Reconciliation Form cp - SBAR form cp Addendum: 04/09/2021 00:01 Co-signature as Attending Physician, Russ Hill MD I agree with the assessment and k dr plan of care. Signatures: Dispatcher [employer] EDMS Maureen Larios Kevin, MD MD kdr Attema, Lee, ENGLISH [employer] MEMBER-C ENGLISH [employer]ACULT[employer] MEMBER-Cla1 Vinicius Dominique PA PA cp Basinger, Emily RN RN eb1 Ashley Orellana RN RN ll3 Cheryl Maradiaga RN RN jg9 Emili Vallejo RN RN cb5 Corrections: (The following items were deleted from the chart) 04/06 19:19 18:14 Telemetry/MedSurg (observation) cp eb1 19:19 18:14 cp eb1 04/07 13:21 04/06 19:19 [facility] ER HOLD eb1 bd 04/07 13:21 04/06 19:19 ERHOLD- eb1 bd
--- NOTE | 2021-04-06 19:03 | P.HP ---
Certification for Inpatient Patient admitted to: Observation With expected LOS: <2 Midnights Patient will require the following post-hospital care: None Practitioner: I am a practitioner with admitting privileges, knowledge of patient current condition, hospital course, and medical plan of care. Services: Services provided to patient in accordance with Admission requirements found in Title 42 Section 412.3 of the Code of Federal Regulations Patient History Date of Service: 04/06/21 Primary Care Provider: Dr. Rosado Reason for admission: Dyspnea, hemoptysis History of Present Illness: 60-year-old -Filipino female with history of Raynaud's presented to the emergency department for shortness of breath, hemoptysis. Patient was seen earlier this month and diagnosed with diverticulitis was prescribed oral antibiotics Cipro/Flagyl which she stopped early as she felt they are making her worse. Patient also did have some bright blood per rectum at that time which is resolved a couple weeks ago. Patient reports that around 130 this morning she woke up and was having a lot of coughing, has had 3 episodes of hemoptysis she describes as small amounts of bright red blood mixed in with sputum/mucus. Patient was evaluated in the emergency department her labs were significant for hemoglobin 10.6 hematocrit 34 MCV 69.3 BNP 484 troponin negative pro Michael less than 0.05 lactic acid 1.1 Covid negative initial chest x-ray demonstrated widespread bilateral airspace disease favored to be pulmonary edema versus multi focal pneumonia, CT a to rule out pulmonary embolism was performed which demonstrated negative for PE background of chronic interstitial lung disease such as usual interstitial pneumonia. Groundglass opacities are noted which could reflect either superimposed infection such as COVID-19. Hilar and axillary adenopathy may be reactive. ED provider wishes to admit to observation for dyspnea, possible multifocal pneumonia versus pulmonary edema with hemoptysis. Allergies No Known Allergies Allergy (Unverified 11/02/15 14:59) - Past Medical/Surgical History Has patient received pneumonia vaccine in the past: No -: Raynaud's Past Surgical History: Patient denies surgical history Psychosocial/ Personal History: Patient lives at home with family - Family History Mother -: Cancer Brother -: Cancer - Social History Smoking Status: Never smoker Alcohol use: No CD- Drugs: No Caffeine use: No Place of Residence: Home Review of Systems 10-point ROS is otherwise unremarkable Respiratory: Cough, Shortness of Breath, Hemoptysis, Sputum, Wheezing, As per HPI Physical Examination - Physical Exam General: Alert, In no apparent distress, Oriented x3 HEENT: Atraumatic, PERRLA, Mucous membr. moist/pink, EOMI, Sclerae nonicteric Neck: Supple, 2+ carotid pulse no bruit, No LAD, Without JVD or thyroid abnormality Respiratory: Expiratory wheezes, Rhonchi/gurgles Cardiovascular: No edema, Regular rate/rhythm, Normal S1 S2 Capillary refill: <2 Seconds Gastrointestinal: Normal bowel sounds, No tenderness Musculoskeletal: No tenderness Integumentary: No rashes Neurological: Normal speech, Normal strength at 5/5 x4 extr, Normal tone, Normal affect - Studies Laboratory Data (last 24 hrs) 04/06/21 14:35: PT 13.2 H, INR 1.15 04/06/21 14:35: WBC 9.30, Hgb 10.6 L, Hct 34.0 L, Plt Count 266 04/06/21 14:35: Sodium 141, Potassium 3.6, BUN 15, Creatinine 0.94, Glucose 100, Magnesium 2.2, Total Bilirubin 0.3, AST 29, ALT 28, Alkaline Phosphatase 72 Assessment and Plan - Plan Assessment: Dyspnea, mild hemoptysis secondary to multifocal pneumonia versus pulmonary edema Microcytic anemia Plan: Dyspnea, mild hemoptysis secondary to multifocal pneumonia versus pulmonary edema: Patient on antibiotics Rocephin/Zithromax will also provide with small dose of Lasix 20 mg IV twice daily. Cardiology and pulmonology consulted. Echocardiogram ordered. Incentive spirometry. Will order sputum culture as well. Repeat chest x-ray tomorrow. Microcytic anemia: Patient with recent history of lower GI bleed which has resolved approximately 2 weeks ago. Will obtain iron studies. Patient denies any further GI bleeding. DVT PPX: SCDs given hemoptysis Code status: Full Discharge Plan: Home Plan to discharge in: 24 Hours - Advance Directives Does patient have a Living Will: No Does patient have a Durable POA for Healthcare: No - Code Status/Comfort Care Code Status Assessed: Yes (Full code) Critical Care: No Time Spent Managing Pts Care (In Minutes): 55
[2021-04-06] MEDS ORDERED: ALBUTEROL 2.5 MG/3 ML NEB SOL ONE (19:46)
[2021-04-06] MEDS ORDERED: IPRATROPIUM BROM 0.5MG/2.5ML ONE (19:46)
[2021-04-06] MEDS ORDERED: ONDANSETRON 4 MG/2 ML VIAL IV PRN (20:20)
[2021-04-06] MEDS ORDERED: ALBUTEROL 2.5 MG/3 ML NEB SOL NEB PRN (20:20)
[2021-04-06] MEDS ORDERED: TRAMADOL HCL 50 MG TAB PO PRN (20:20)
[2021-04-06] MEDS ORDERED: IPRATROPIUM BROM 0.5MG/2.5ML NEB PRN (20:20)
[2021-04-06] MEDS ORDERED: BENZONATATE 100 MG CAP PO PRN (20:20)
[2021-04-06 23:33] VITALS: O2SAT 100; BMI 34.0
[2021-04-07 04:42] LABS: Absolute Lymphocytes (CBC) 3.2 K/uL (0.7-4.9); Hematocrit 29.1 % (36.0-45.0); Lymphocytes % 42.2 % (15.3-44.8); MPV 9.2 fL (7.6-11.3); RBC Red Blood Cell Count 4.19 M/uL (3.86-4.86)
[2021-04-07 05:11] LABS: Albumin 2.7 g/dL (3.4-5.0); Bilirubin Total 0.3 mg/dL (0.2-1.0); C-Reactive Protein 11.1 mg/L (<3.00); Ferritin 111.9 ng/mL (8-388); Potassium 3.7 mmol/L (3.5-5.1); Protein, Total 6.8 g/dL (6.4-8.2); Thyroid Stimulating Hormone 1.63 uIU/mL (0.360-3.740)
[2021-04-07] MEDS: METOPROLOL TAR 25 MG TAB PO SCH ×2 (06:00→18:03)
[2021-04-07] MEDS ORDERED: METOPROLOL TAR 25 MG TAB ONE (06:12)
--- NOTE | 2021-04-07 06:33 | P.PN ---
Date of Service: 04/07/21 Subjective: no acute events overnight continues with some hemoptysis ROS: 10 point ROS as noted above, otherwise negative Physical exam GEN: Alert, oriented, NAD HEENT: Normal conjunctiva, sclera anicteric CV: Regular rate and rhythm, no edema Pulm: nonlabored, b/l crackles ABD: Soft, nontender, nondistended Neuro: Normal speech, normal affect Problem List Dyspnea, mild hemoptysis secondary to multifocal pneumonia versus pulmonary edema Microcytic anemia Continue antibiotics Seems to be doing slightly better Pulmonology consulted Cardiology consulted, echocardiogram ordered for today Continue incentive spirometry Follow-up cultures Hemoglobin slightly low, likely hemodilution. Repeat tomorrow Code: full Dispo: home in 24-48hrs Time Spent Managing Pts Care (In Minutes): 35
--- NOTE | 2021-04-07 07:31 | RAD REPORT ---
EXAM DESCRIPTION: RAD - Chest Single View - 04/07/2021 5:40 am CLINICAL HISTORY: eval pneumonia vs pulm edema COMPARISON: Chest Single View dated 04/06/2021; Chest For Pe Angio dated 04/06/2021 FINDINGS: Lines: None. Lungs: Moderate multifocal airspace disease is similar to 04/06/2021. Reference CT from 04/06/2021. M any opacities are related to a suspected chronic interstitial lung disease. Pleural: No significant pleural effusions or pneumothorax. Cardiac: The heart size is within normal limits. Bones: No acute fractures. Other: IMPRESSION: Similar moderate bilateral airspace opacities. The appearance today is more suggestive o f pneumonia versus acute exacerbation of interstitial lung disease
[2021-04-07] MEDS ORDERED: POTASSIUM CL SA 10 MEQ TAB PO ONE ×2 (08:11→09:00)
[2021-04-07] MEDS ORDERED: AZITHROMYCIN 500 MG INJ IVPB ONE (08:12)
[2021-04-07] MEDS ORDERED: FUROSEMIDE 40 MG/4 ML VIAL ONE (08:12)
[2021-04-07] MEDS ORDERED: NA CHLORIDE 0.9% 250 ML ONE (08:12)
[2021-04-07] MEDS: FUROSEMIDE 20 MG/ 2ML VIAL IV SCH ×2 (08:39→18:02)
[2021-04-07] MEDS: AZITHROMYCIN IV 500 MG in NA CHLORIDE 0.9% 250 ML IVPB SCH (08:40)
[2021-04-07] MEDS ORDERED: NA CHLORIDE 0.9% 100 ML IV ONE (09:59)
[2021-04-07] MEDS ORDERED: CEFTRIAXONE 1000 MG/VIAL ONE (09:59)
[2021-04-07] MEDS ORDERED: CEFTRIAXONE 1,000 MG in NA CHLORIDE 0.9% 50 ML IVPB SCH (10:00)
--- NOTE | 2021-04-07 13:45 | P.CNS ---
Date of Consult: 04/07/21 Reason for Consult: pneumonia Primary Care Provider: Dr. Rosado Chief Complaint: Dyspnea, hemoptysis History of Present Illness: Pt i s60 yrs of age AW acure SOB and hemoptysis, recetn hosp adnission for diverticulits, Doign better, never smoked. No prior Hx of hemoptysis Allergies No Known Allergies Allergy (Unverified 11/02/15 14:59) Home Medications: Ciprofloxacin HCl [Cipro 500 MG Tablet] 500 mg PO Q12HP 04/06/21 Metronidazole 500 mg PO DAILY 04/06/21 - Past Medical/Surgical History Diabetic: No -: Raynaud's Psychosocial/ Personal History: Patient lives at home with family - Family History Mother Medical History: Cancer Brother Medical History: Cancer - Social History Smoking Status: Never smoker Alcohol use: No CD- Drugs: No Caffeine use: No Place of Residence: Home Review of Systems 10-point ROS is otherwise unremarkable Respiratory: Cough, Shortness of Breath Physical Examination Temp Pulse Resp BP Pulse Ox 97.9 F 76 17 133/75 100 04/07/21 07:58 04/07/21 08:39 04/07/21 07:58 04/07/21 08:39 04/07/21 07:58 General: Alert, In no apparent distress, Oriented x3 HEENT: Atraumatic Neck: Supple Respiratory: Clear to auscultation bilaterally Cardiovascular: No edema, Regular rate/rhythm Gastrointestinal: Normal bowel sounds, Soft and benign Laboratory Data (last 24 hrs) 04/06/21 14:35: PT 13.2 H, INR 1.15 04/06/21 14:35: WBC 9.30, Hgb 10.6 L, Hct 34.0 L, Plt Count 266 04/06/21 14:35: Sodium 141, Potassium 3.6, BUN 15, Creatinine 0.94, Glucose 100, Magnesium 2.2, Total Bilirubin 0.3, AST 29, ALT 28, Alkaline Phosphatase 72 - Problems (1) Pneumonia Current Visit: Yes Status: Acute Plan: Age 60 hx of Raymauds aW hemoptysis an dSOb/ CT scan show difuuse ILD predom perioheral Tx wit levaquin 720 and pred for 10 days and f/u with me 2 wks/ normal WBC, Microcytic anemia will need to be evaluated for blood loss patient's TIBC and iron saturation are both low is probably iron deficient vital signs all stable saturation 100% on room air it appears she may be developing interstitial pneumonia Qualifiers: Pneumonia type: due to unspecified organism
--- NOTE | 2021-04-07 22:06 | CON ---
Date of Consultation: 04/07/2021 Reason For Consultation: Shortness of breath and cough. History Of Present Illness: This is a 60-year-old female, history of Raynaud syndrome, presented wit h shortness of breath and cough. Chest pain only when coughing. She denies having fever. Has some sore throat and she is having some hemoptysis or blood streaks in the mucus. Denies having lower ext remity edema or orthopnea or known cardiac history. Past Medical History: As outlined above. Medications: Refer reconciliation sheet for detailed list. Allergies: NO KNOWN DRUG ALLERGIES. Family History: No mention of coronary artery disease or cancer. Social History: Does not smoke or drink. Does not use any drugs. Review of Systems: All systems reviewed and they were negative except for mentioned in HPI. Physical Examination: VITAL SIGNS: Reviewed. HEENT: On exam, pupils are equal and reactive to light. Intact eye movements. No JVD. No cervical . Neck: Supple. Thyroid is not enlarged. Lungs: Clear to auscultation bilaterally. No rhonchi, rales, or crackles. No accessory muscle use. Heart: Regular rate and rhythm. No extra sounds. Abdomen: Soft and nontender. Bowel sounds positive. No organomegaly. No masses or hernia. No rig idity or rebound. Extremities: No clubbing or cyanosis. Intact pulses. Skin: No rashes. Neurologic: Alert, awake, and oriented x3. No focal associated. Lymph Nodes: No cervical adenopathy. Investigations: White blood count 7.6, hemoglobin 9.2. Creatinine is 0.85 and troponins negative. Assessment And Recommendations: Shortness of breath and cough. Chest x-ray, bilateral infiltrates, likely she has pneumonia. There are no signs of congestive heart failure. However, due to the hemop tysis, recommend echocardiogram to evaluate for any mitral valve disorder that is negative. Likely, her symptoms and hemoptysis are related to her pneumonia. Thank you for the consult. /KEVIN Voice ID: [id number] Report ID: [id number]
[2021-04-08 06:44] LABS: Bilirubin Total 0.4 mg/dL (0.2-1.0); Potassium 4.3 mmol/L (3.5-5.1); Protein, Total 7.5 g/dL (6.4-8.2)
[2021-04-08] MEDS: METOPROLOL TAR 25 MG TAB PO SCH (07:32)
--- NOTE | 2021-04-08 07:38 | ECHO ---
HEIGHT: 5 ft 7 in WEIGHT: 217 lb 0 oz DATE OF STUDY: 04/07/[address]: Vel Ho NP 2-DIMENSIONAL: YES M.MODE: YES DOPPLER: YES COLOR FLOW: YES TDS: NO PORTABLE: NO DEFINITY: NO BUBBLE STUDY: NO DIAGNOSIS: DYSPNEA CARDIAC HISTORY: CATHERIZATION: NO SURGERY: NO PROSTHETIC VALVE: NO PACEMAKER: NO MEASUREMENTS (cm) DIASTOLIC (NORMALS) SYSTOLIC (NORMALS) IVSd 1.0 (0.6-1.2) LA Diam 2.8 (1.9-4.0) LVEF 60-65% LVIDd 4.3 (3.5-5.7) LVIDs 2.7 (2.0-3.5) %FS 37% LVPWd 1.1 (0.6-1.2) Ao Diam 2.3 (2.0-3.7) 2 DIMENSIONAL ASSESSMENT: RIGHT ATRIUM: NORMAL LEFT ATRIUM: NORMAL RIGHT VENTRICLE: NORMAL LEFT VENTRICLE: NORMAL TRICUSPID VALVE: MITRAL VALVE: PULMONIC VALVE: NORMAL AORTIC VALVE: NORMAL PERICARDIAL EFFUSION: NONE AORTIC ROOT: NORMAL LEFT VENTRICULAR WALL MOTION: NORMAL DOPPLER/COLOR FLOW: MILD MITRAL AND TRICUSPID REGURGITATION. COMMENTS: NORMAL LEFT VENTRICULAR EJECTION FRACTION 60-65%. NORMAL WALL MOTION. MILD TRICUSPID AND MITRAL REGURGITATION. RIGHT VENTRICULAR SYSTOLIC PRESSURE IS NORMAL < 35 mmHg. MILD DIASTOLIC DYSFUNCTION. TECHNOLOGIST: Sofiya JAMES
[2021-04-08 07:53] LABS: Absolute Lymphocytes (CBC) 2.8 K/uL (0.7-4.9); Hematocrit 31.2 % (36.0-45.0); Lymphocytes % 36.9 % (15.3-44.8); MPV 8.5 fL (7.6-11.3); RBC Red Blood Cell Count 4.49 M/uL (3.86-4.86)
[2021-04-08] MEDS: FUROSEMIDE 20 MG/ 2ML VIAL IV SCH (09:12)
[2021-04-08] MEDS: AZITHROMYCIN IV 500 MG in NA CHLORIDE 0.9% 250 ML IVPB SCH (09:12)
[2021-04-08 09:19] VITALS: BP 129/77; TEMP 97.2
--- NOTE | 2021-04-08 15:45 | PN ---
Date of Progress Note: 04/08/2021 Ms. Rivas came in with shortness of breath, possible pneumonia, possible congestive heart failure. Dr. Anna saw her and recommended a 2D echocardiogram to rule out mitral valve disorder. Her echoc ardiogram was unremarkable with a normal ejection fraction. There was no cardiomyopathy, effusion, w all motion abnormalities or vegetation. We still think her problem with breathing was secondary to p neumonia. She can go home whenever it is okay with her admitting physician. We will see her on an a s-needed basis. VAHE/KEVIN Voice ID: [id number] Report ID: [id number]
--- NOTE | 2021-04-08 17:40 | P.DS ---
Admission Date: 04/06/21 Discharge Date: 04/08/21 Primary Care Provider: Dr. Rosado Disposition: ROUTINE DISCHARGE Discharge Condition: GOOD Reason for Admission: Dyspnea, hemoptysis Consultations: Pulmonology Cardiology Procedures: Problem List Dyspnea, mild hemoptysis secondary to multifocal pneumonia Microcytic anemia, iron deficiency Brief History of Present Illness: 60-year-old -[place] African female with history of Raynaud's presented to the emergency department for shortness of breath, hemoptysis. Patient was seen earlier this month and diagnosed with diverticulitis was prescribed oral antibiotics Cipro/Flagyl which she stopped early as she felt they are making her worse. Patient also did have some bright blood per rectum at that time which is resolved a couple weeks ago. Patient reports that around 130 this morning she woke up and was having a lot of coughing, has had 3 episodes of hemoptysis she describes as small amounts of bright red blood mixed in with sputum/mucus. Patient was evaluated in the emergency department her labs were significant for hemoglobin 10.6 hematocrit 34 MCV 69.3 BNP 484 troponin negative pro Michael less than 0.05 lactic acid 1.1 Covid negative initial chest x-ray demonstrated widespread bilateral airspace disease favored to be pulmonary edema versus multi focal pneumonia, CT a to rule out pulmonary embolism was performed which demonstrated negative for PE background of chronic interstitial lung disease such as usual interstitial pneumonia. Groundglass opacities are noted which could reflect either superimposed infection such as COVID-19. Hilar and axillary adenopathy may be reactive. ED provider wishes to admit to observation for dyspnea, possible multifocal pneumonia versus pulmonary edema with hemoptysis. Hospital Course: Patient was found to have pneumonia. Pulmonology was consulted, recommended Levaquin for 7 days, and prednisone 10 mg twice a day for 10 days. She had improvement of her symptoms. She continued to have some mild hemoptysis, but was improving and minimal. Cardiology was consulted due to the chest discomfort. Troponins were negative, echocardiogram was within normal limits, no further recommendations. Deemed stable for discharge home Follow-up with pulmonology in 1 week Patient was found to have a mild microcytic anemia. Initial basic work-up seems consistent with iron deficiency. Vital Signs/Physical Exam: Temp Pulse Resp BP Pulse Ox 97.2 F 96 H 18 129/77 100 04/08/21 08:00 04/08/21 09:12 04/08/21 08:00 04/08/21 09:12 04/08/21 08:00 Physical exam GEN: Alert, oriented, NAD HEENT: Normal conjunctiva, sclera anicteric CV: Regular rate and rhythm, no edema Pulm: nonlabored respirations on room air ABD: Soft, nontender, nondistended Neuro: Normal speech, normal affect Laboratory Data at Discharge: WBC 7.50 K/uL (4.3-10.9) 04/08/21 07:28 Hgb 9.8 g/dL (12.0-15.0) L 04/08/21 07:28 Hct 31.2 % (36.0-45.0) L 04/08/21 07:28 Plt Count 246 K/uL (152-406) 04/08/21 07:28 PT 13.2 SECONDS (9.5-12.5) H 04/06/21 14:35 INR 1.15 04/06/21 14:35 Sodium 140 mmol/L (136-145) 04/08/21 05:54 Potassium 4.3 mmol/L (3.5-5.1) 04/08/21 05:54 BUN 15 mg/dL (7-18) 04/08/21 05:54 Creatinine 0.99 mg/dL (0.55-1.3) 04/08/21 05:54 Glucose 94 mg/dL (74-106) 04/08/21 05:54 Magnesium 2.2 mg/dL (1.8-2.4) 04/06/21 14:35 Total Bilirubin 0.4 mg/dL (0.2-1.0) 04/08/21 05:54 AST 29 U/L (15-37) 04/08/21 05:54 ALT 27 U/L (12-78) 04/08/21 05:54 Alkaline Phosphatase 65 U/L (45-117) 04/08/21 05:54 Triglycerides 43 mg/dL (<150) 04/07/21 03:53 Cholesterol 118 mg/dL (<200) 04/07/21 03:53 HDL Cholesterol 59 mg/dL (40-60) 04/07/21 03:53 Cholesterol/HDL Ratio 2.00 04/07/21 03:53 Home Medications: Metronidazole 500 mg PO DAILY 04/06/21 Benzonatate [Tessalon Perle*] 100 mg PO TID PRN 5 Days #15 cap 04/08/21 levoFLOXacin [Levaquin] 750 mg PO DAILY 7 Days #7 tab 04/08/21 predniSONE [Deltasone*] 10 mg PO BID 10 Days #20 tab 04/08/21 New Medications: predniSONE [Deltasone*] 10 mg PO BID 10 Days #20 tab levoFLOXacin [Levaquin] 750 mg PO DAILY 7 Days #7 tab Benzonatate [Tessalon Perle*] 100 mg PO TID PRN 5 Days #15 cap PRN Reason: Cough Physician Discharge Instructions: Patient was found to have pneumonia. Pulmonology was consulted, recommended Levaquin for 7 days, and prednisone 10 mg twice a day for 10 days. She had improvement of her symptoms. She continued to have some mild hemoptysis, but was improving and minimal. Cardiology was consulted due to the chest discomfort. Troponins were negative, echocardiogram was within normal limits, no further recommendations. Deemed stable for discharge home Follow-up with pulmonology in 1 week Patient was found to have a mild microcytic anemia. Initial basic work-up seems consistent with iron deficiency. Diet: Regular Activity: Ad all Followup: Liang Contreras MD [ACTIVE - CAN ADMIT] - Shereen Rosado DO [Primary Care Provider] - Time spent managing pt's care (in minutes): 45
== END 2021-04-08 11:30 | disposition home or self-care (01) ==
LOC: ER 11:28 → ERHOLD 19:34 → 2ND 04-07 16:11
PROVIDERS: ADMIT Hospitalist; ATTEND Hospitalist
DX: J18.9 Pneumonia, unspecified organism (principal); R04.2 Hemoptysis; D50.9 Iron deficiency anemia, unspecified; K57.92 Diverticulitis of intestine, part unspecified, without perforation or abscess without bleeding; I73.00 Raynaud's syndrome without gangrene; Z20.822 Contact with and (suspected) exposure to COVID-19; Z80.9 Family history of malignant neoplasm, unspecified
CPT/HCPCS: 96365; 93005; 93306; 87040 ×2; 85025 ×3; 80048; 36415 ×2; 83735; 85610; 80061; 80076; 83605; 84443; 84484; 84439; 82728; 83540; 80053 ×2; 84145 ×2; 83880; 0240U; 84466; 86140; 71275; 71045 ×2; 93970; 94010; 94640; 96375; 99284; 96366; Q9967; J1940 ×4; J0456 ×3; J7050 ×3; G0378 ×4

== ENCOUNTER 2021-05-22 21:29 | Emergency (ER) | payer OTHER ==
--- OUTSIDE RECORDS SUMMARY | 2021-05-22 21:34 | XMS REPORT | Continuity of Care Document ---
:1960 Author Organization [facility] t Address [address] [place] [address] Care Team Providers Name Role Phone Neptali Rosado Attending Clinician Unavailable MANDIE Attending Clinician Unavailable MANDIE Attending Clinician Unavailable Joseph PENA Attending Clinician Unavailable Doctor Unassigned, Name Attending Clinician Unavailable SANGITA PENYN Attending Clinician Unavailable CHERYL RAM Attending Clinician Unavailable [place] Penny MD Attending Clinician Cheryl Ram MD Attending Clinician Pcp-Lab Attending Clinician Unavailable Payers Payer Name Policy Type Policy Number Effective Date Expiration Date Sunshine baum [facility] [employer] [id number] 2020 00:00:00 SPRING Problems Condition Condition Condition Status Onset Resolution Last Treating Co mments Source Name Details Category Date Date Treatment Clinician Date Scleroderm Scleroderm Disease Active 2019-0 U nivers a a 1-10 ity of 00:00: [address] Skin Skin Disease Active 2019-0 Univers thickening thickening 1-10 it y of 00:00: [address] Contracept Contracept Disease Active 2015- [place] Well woman Well woman Disease Active 2015- U nivers exam exam 07-19 ity of 00:00: [address] Contracept Contracept Disease Active 2015- [place] [address] [place] [address] History of History of Disease Active 2015-0 [...] Active Univers ALLERGIE Class ity of S [facility] Social History Social Habit Start Date Stop Date Quantity Comments Source Exposure to Not sure [facility] SARS-CoV-2 [facility] (event) Branch Tobacco use and 2020-07-30 2020-07-30 Never used Universit y of exposure 00:00:00 00:00:00 [facility] Alcohol intake 2020-07-30 2020-07-30 Current University 00:00:00 00:00:00 non-drinker of [facility] alcohol [place] (finding) Sex Ass[birth year] At [birth year] Universit y of 00:00:00 00:00:00 [facility] Smoking Status Start Date Stop Date Source Never smoker [facility] Medications Ordered Filled Start Stop Current Ordering Indication Dosage Frequency Signature Comments Components Source Medication Medication Date Date Medication? Clinician (SIG) Name Name amLODIPine Yes [id number] 5mg Take 1 Univers 5 mg tablet 6-11 tablet by ity of 00:00: mouth [place] 00 daily. Medical Branch omeprazole Yes [id number] 20mg Take 1 Univers 20 mg 6-11 capsule by ity of capsule 00:00: mouth [place] 00 daily. Medical Branch amLODIPine Yes [id number] 5mg Take 1 Univers 5 mg tablet 6-11 tablet by ity of 00:00: mouth [place] 00 daily. Medical Branch omeprazole Yes [id number] 20mg Take 1 Univers 20 mg 6-11 capsule by ity of capsule 00:00: mouth [place] 00 daily. Medical Branch amLODIPine Yes [id number] 5mg Take 1 Univers 5 mg tablet 6-11 tablet by ity of 00:00: mouth [place] 00 daily. Medical Branch omeprazole Yes [id number] 20mg Take 1 Univers 20 mg 6-11 capsule by ity of capsule 00:00: mouth [place] 00 daily. Medical Branch amLODIPine Yes [id number] 5mg Take 1 Univers 5 mg tablet 6-11 tablet by ity of 00:00: mouth [place] 00 daily. Medical Branch omeprazole 2020-0 Yes [id number] 20mg Take 1 Univers 20 mg 6-11 capsule by ity of capsule 00:00: mouth [place] 00 daily. Medical Branch amLODIPine 2020-0 Yes [id number] 5mg Take 1 Univers 5 mg tablet 6-11 tablet by ity of 00:00: mouth [place] 00 daily. Medical Branch omeprazole 2020-0 Yes [id number] 20mg Take 1 Univers 20 mg 6-11 capsule by ity of capsule 00:00: mouth [place] 00 daily. Medical Branch amLODIPine 2020-0 Yes [id number] 5mg Take 1 Univers 5 mg tablet 6-11 tablet by ity of 00:00: mouth [place] 00 daily. Medical Branch omeprazole 2020-0 Yes [id number] 20mg Take 1 Univers 20 mg 6-11 capsule by ity of capsule 00:00: mouth [place] 00 daily. Medical Branch amLODIPine 2020-0 Yes [id number] 5mg Take 1 Univers 5 mg tablet 6-11 tablet by ity of 00:00: mouth [place] 00 daily. Medical Branch omeprazole 2020-0 Yes [id number] 20mg Take 1 Univers 20 mg 6-11 capsule by ity of capsule 00:00: mouth [place] 00 daily. Medical Branch amLODIPine 2020-0 Yes [id number] 5mg Take 1 Univers 5 mg tablet 6-11 tablet by ity of 00:00: mouth [place] 00 daily. Medical Branch omeprazole 2020-0 Yes [id number] 20mg Take 1 Univers 20 mg 6-11 capsule by ity of capsule 00:00: mouth [place] 00 daily. Medical Branch amLODIPine 2020-0 Yes [id number] 5mg Take 1 Univers 5 mg tablet 6-11 tablet by ity of 00:00: mouth [place] 00 daily. Medical Branch omeprazole 2020-0 Yes [id number] 20mg Take 1 Univers 20 mg 6-11 capsule by ity of capsule 00:00: mouth [place] 00 daily. Medical Branch omeprazole 2018-0 Yes [id number] 20mg Take 1 Univers 20 mg 8-15 capsule by ity of capsule 00:00: mouth [place] 00 daily. Medical Branch amLODIPine 2018-0 Yes [id number] 5mg Take 1 Univers 5 mg tablet 8-15 tablet by ity of 00:00: mouth [place] 00 daily. Medical Branch omeprazole 2019-0 Yes [id number] 20mg Take 1 Univers 20 mg 8-15 capsule by ity of capsule 00:00: mouth [place] 00 daily. Medical Branch amLODIPine 2019-0 Yes [id number] 5mg Take 1 Univers 5 mg tablet 8-15 tablet by ity of 00:00: mouth [place] 00 daily. Medical Branch omeprazole 2019-0 Yes [id number] 20mg Take 1 Univers 20 mg 8-15 capsule by ity of capsule 00:00: mouth [place] 00 daily. Medical Branch amLODIPine 2019-0 Yes [id number] 5mg Take 1 Univers 5 mg tablet 8-15 tablet by ity of 00:00: mouth [place] 00 daily. Medical Branch omeprazole 2018-0 2020- No [id number] 20mg Take 1 Univers 20 mg 8-15 06-11 capsule by ity of capsule 00:00: 00:00 mouth [place] 00 :00 daily. Medical Branch amLODIPine 2018-0 2020- No [id number] 5mg Take 1 Univers 5 mg tablet 8-15 06-11 tablet by it y of 00:00: 00:00 mouth [place] 00 :00 daily. Medical Branch omeprazole 2018-0 2020- No [id number] 20mg Take 1 Univers 20 mg 8-15 06-11 capsule by ity of capsule 00:00: 00:00 mouth [place] 00 :00 daily. Medical Branch amLODIPine 2018-0 2020- No [id number] 5mg Take 1 Univers 5 mg tablet 8-15 06-11 tablet by it y of 00:00: 00:00 mouth [place] 00 :00 daily. Medical Branch omeprazole 2018-0 2020- No [id number] 20mg Take 1 Univers 20 mg 8-15 06-11 capsule by ity of capsule 00:00: 00:00 mouth [place] 00 :00 daily. Medical Branch amLODIPine 2018-0 1- No [id number] 5mg Take 1 Univers 5 mg tablet 8-15 06-11 tablet by it y of 00:00: 00:00 mouth [place] 00 :00 daily. Medical Branch omeprazole 2018-0 2020- No [id number] 20mg Take 1 Univers 20 mg 8-15 06-11 capsule by ity of capsule 00:00: 00:00 mouth [place] 00 :00 daily. Medical Branch amLODIPine 2018-0 1- No [id number] 5mg Take 1 Univers 5 mg tablet 8-15 06-11 tablet by it y of 00:00: 00:00 mouth [place] 00 :00 daily. Medical Branch omeprazole 2018-2020- No [id number] 20mg Take 1 Univers 20 mg 8-15 06-11 capsule by ity of capsule 00:00: 00:00 mouth [place] 00 :00 daily. Medical Branch amLODIPine 2018-2020- No [id number] 5mg Take 1 Univers 5 mg tablet 8-15 06-11 tablet by it y of 00:00: 00:00 mouth [place] 00 :00 daily. Medical Branch omeprazole 2018-2020- No [id number] 20mg Take 1 Univers 20 mg 8-15 06-11 capsule by ity of capsule 00:00: 00:00 mouth [place] 00 :00 daily. Medical Branch amLODIPine 2018-2020- No [id number] 5mg Take 1 Univers 5 mg tablet [...] hours as Branch needed. amLODIPine 2019- Yes [id number] 5mg Take 1 Univers 5 mg tablet 1-10 tablet by ity of 00:00: mouth [place] 00 daily. Medical Branch omeprazole Yes [id number] 20mg Take 1 Univers 20 mg 1-10 capsule by ity of capsule 00:00: mouth [place] 00 daily. Medical Branch amLODIPine 2019- No [id number] 5mg Take 1 Univers 5 mg tablet 1-10 08-15 tablet by it y of 00:00: 00:00 mouth [place] 00 :00 daily. Medical Branch omeprazole 2019- No [id number] 20mg Take 1 Univers 20 mg 1-10 08-15 capsule by ity of capsule 00:00: 00:00 mouth [place] 00 :00 daily. Medical Branch amLODIPine 2019- No [id number] 5mg Take 1 Univers 5 mg tablet 1-10 08-15 tablet by it y of 00:00: 00:00 mouth [place] 00 :00 daily. Medical Branch omeprazole 2019- No [id number] 20mg Take 1 Univers 20 mg 1-10 08-15 capsule by ity of capsule 00:00: 00:00 mouth [place] 00 :00 daily. Medical Branch Immunizations Ordered Filled Immunization Date Status Comments [facility] e Immunization Name Name [facility] 2015-07-20 Completed University of 00:00:00 [facility] 2015-07-20 Completed University of 00:00:00 [facility] TD 2015-07-20 Completed University of 00:00:00 [facility] TD 2015-07-20 Completed University of 00:00:00 [facility] 2015-07-20 Completed University of 00:00:00 [facility] 2015-07-20 Completed University of 00:00:00 [facility] 2015-07-20 Completed University of 00:00:00 [facility] TDAP 2015-07-20 Completed University of 00:00:00 [facility] 2015-07-20 Completed University of 00:00:00 [facility] 2015-07-20 Completed University of 00:00:00 [facility] 2015-07-20 Completed University of 00:00:00 [facility] 2015-07-20 Completed University of 00:00:00 [facility] 2015-07-20 Completed University of 00:00:00 [facility] Vital Signs Vital Name Observation Time Observation Value Comments Source Heart rate 2020-07-29 15:33:00 75 /min [facility] Body temperature 2020-07-29 15:33:[address] [facility] Respiratory rate 2020-07-29 15:33:00 18 /min [facility] Body height 2020-07-29 15:33:00 170.2 cm [facility] Body weight 2020-07-29 15:33:00 94.802 kg [facility] BMI 2020-07-29 15:33:00 32.73 kg/m2 [facility] Oxygen saturation in 2020-07-29 15:33:00 96 /min room air University Arterial blood by [facility] Pulse oximetry Branch Systolic blood 2018-10-03 15:23:00 137 mm[Hg] Univer sity of pressure [facility] Diastolic blood 2018-10-03 15:23:00 86 mm[Hg] Unive rsity of pressure [facility] Heart rate 2018-10-03 15:23:00 101 /min [facility] Body temperature 2018-10-03 15:23:[address] [facility] Respiratory rate 2018-10-03 15:23:00 16 /min [facility] Body height 2018-10-03 15:23:00 170.2 cm [facility] Body weight 2018-10-03 15:23:00 95.936 kg [facility] BMI 2018-10-03 15:23:00 33.13 kg/m2 [facility] Oxygen saturation in 2018-10-03 15:23:00 100 /min [facility] blood by [facility] Pulse oximetry Branch Procedures Procedure Date / Time Performed Performing Clinician [facility] lucita PULMONARY FUNCTION 2020-09-13 17:49:10 Doctor Unassigned, No [facility] TEST (RESULTS) [facility] CT THORAX WO CONTRAST 2020-08-17 19:33:41 Milad Penny [facility] NOTICE OF PRIVACY 2020-08-17 19:01:43 Doctor Unassigned, No [facility] PRACTICES [facility] CONSENT/REFUSAL FOR 2020-08-17 18:58:43 Doctor Unassigned, No [facility] DIAGNOSIS AND [facility] TREATMENT ASSIGNMENT OF BENEFITS 2020-08-17 18:58:24 Doctor Unassigned, No [facility] XR HAND 3+ VW 2020-07-29 17:12:15 Milad Penny [facility] BILATERAL [facility] PATIENT FINANCIAL 2018-10-03 15:12:03 Doctor Unassigned, No [facility] POLICY [facility] Encounters Start End Encounter Admission Attending Care Care Encounter Source Date/Time Date/Time Type Type Clinicians Facility Department ID 2021-05-13 Outpatient Ashlee Na [facility] [id number] [facility] 10:14:01 [facility] 2021-03-16 Outpatient Shereen Rosado [facility] [id number] [facility] 14:24:19 [id number] [facility] 2021-03-16 Outpatient Shereen Rosado [facility] [id number] 14:21:32 [id number] [facility] 2021-03-16 Outpatient Rosado, Na [facility]LMLC [facility] [id number] [facility] 14:01:01 [id number] [facility] 2021-03-16 Outpatient Rosado, Na [facility] [id number] [facility] 13:56:51 [id number] [facility] 2021-03-16 Outpatient Rosado, Na [facility]LMLC [facility] [id number] [facility] 13:47:23 [id number] [facility] 2021-03-16 Outpatient Rosado, Na [facility]LMLC [facility] [id number] 13:13:12 [id number] [facility] 2021-03-16 Outpatient Ashlee, Na [facility] [id number] 12:42:20 [id number] [facility] 2021-05-16 2021-05-16 ambulatory [facility] [id number] [facility] 2021-05-09 2021-05-09 ambulatory [facility] [id number] [facility] 2021-04-06 2021-04-06 ambulatory [facility] [id number] [facility] 2021-03-23 2021-03-23 ambulatory [facility] [id number] [facility] 2021-03-02 2021-03-02 ambulatory [facility] [id number] [facility] 2021-01-25 2021-01-25 ambulatory [facility] [id number] [facility] 2020-11-25 2020-11-25 Outpatient [facility] [id number] [facility] 2020-10-14 2020-10-14 Outpatient R TETE LOCKWOOD [facility] [id number] Univers 15:00:00 15:00:00 TETE LOCKWOOD [id number] i ty [facility] 2020-09-13 2020-09-13 Outpatient R [facility] [id number] Univers 14:00:00 14:00:00 [id number] ity [facility] 2020-09-13 2020-09-13 Outpatient R BECKY, [facility] [id number] Univers 14:00:00 14:00:00 NORY [facility] 2020-09-13 2020-09-13 Orders Doctor JOYCE [id number] Univers 00:00:00 00:00:00 Only Unassigned, [place] [id number] ity of [place] [facility] [id number] [place] [id number] [address] 2020-08-26 2020-08-26 Outpatient R ZOHAIB, [facility] [id number] Univers 10:00:00 10:00:00 MILAD [id number] [facility] 2020-08-26 2020-08-26 Outpatient R ZOHAIB, [facility] [id number] Univers 10:00:00 10:00:00 MILAD [facility] 2020-08-24 2020-08-24 Outpatient Alexander RAM, [facility] [id number] Univers 09:00:00 09:00:00 ZAHIRA [id number] ity o f [facility] 2020-08-24 2020-08-24 Outpatient R SUKI [facility] [id number] Univers 09:00:00 09:00:00 ZAHIRA ity o f [facility] 2020-08-17 2020-08-17 Outpatient R ZOHAIB, [facility] [id number] Univers 16:00:00 16:00:00 MILAD [id number] [facility] 2020-08-17 2020-08-17 [facility] [id number] Univers 13:59:36 15:22:00 Encounter Milad [place] [id number] ity of [id number] [id number] [facility] 801 Branch 2020-08-17 2020-08-17 [facility] [id number] Univers 00:00:00 00:00:00 MILAD ity of [facility] 2020-08-11 2020-08-11 Outpatient [facility] [id number] [facility] 2020-08-09 2020-08-09 Case Suki [facility] [id number] Univers 00:00:00 00:00:00 Management [facility] [id number] ity of [place] CLINICS [id number] [id number] [facility] 084 Branch 2020-07-30 2020-07-30 Outpatient [facility] [id number] [facility] 2020-07-30 2020-07-30 Outpatient [facility] [id number] [facility] 2020-07-29 2020-07-29 [facility] [id number] [facility] 11:41:19 23:59:00 Encounter Milad PRIMARY [id number] ity of [id number] [id number] Mo dical 807 Branch 2020-07-29 2020-07-29 Operator Lights Pcp-Lab [facility] [id number] Univers 11:05:28 11:20:28 Visit Milad Penny [place] PRIMARY [id number] 10 ity [place] [id number] [id number] [place] 366 Branch 2020-07-29 2020-07-29 [facility] [id number] Univers 10:11:15 10:31:15 Visit Milad PRIMARY [id number] it y [id number] [id number] [facility] 086 [place] 2020-07-29 2020-07-29 Outpatient R ZOHAIB, [facility] [id number] Univers 10:20:00 10:20:00 [facility] [id number] y [facility] 2020-07-29 2020-07-29 Outpatient R ZOHAIB, [facility] [id number] Univers 10:20:00 10:20:00 [facility] 2020-04-23 2020-04-23 Outpatient [facility] [id number] [facility] 2018-10-03 2018-10-03 [facility] [id number] Univers 10:15:09 11:11:32 Visit Milad [facility] [id number] it y of [id number] [id number] [facility] 086 [place] 2018-10-03 2018-10-03 Orders Doctor JOYCE [id number] Univers 00:00:00 00:00:00 Only Unassigned, [place] [id number] ity of [place] [facility] [id number] [place] [id number] [address] Results Test Description Test Time Test Comments Results Result Comments Source PULMONARY FUNCTION TEST (RESULTS) 2020-09-13 17:49:10 Test Item Value Reference Range Interpretation Comme nts FVC Actual (test code = 3994) 1.70 L FEV1 Actual (test code = 3993) 1.48 L FEV1/FVC Actual (test code = 3995) 87 % [facility] [id number] 20:51:47 1. Pattern of fibrosing lung disease [...] bilateral axillary nodes, left greater than right,likely reactive.[facility]+ VW [id number] 19:32:58Impression: Diffuse bilateral acro- osteolysis. End of Report. RL: [id number] Ordering Physician: MILAD PENNY. Procedure: XR HAND 3+ VW BILATERAL Comparison: None. History: for acro osteolysis, thanks . Findings: Well-corticated absence of most of the portions of the distal phalangesthroughout both hands consistent with the history of acro-osteolysis. 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 No fracture, dislocation, or bony erosion is identified. Rust, Radiant Results Inft User - 07/29/2020 2:34 PM CDT Ordering Physician: MILAD PENNY.Procedure: XR HAND 3+ VW BILATERALComparison: None.History: for acro osteolysis, thanks . Findings:Well-corticated absence of most of the portions of the distal phalangesthroughout both hands consistent with the history of acro-osteolysis. 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
[2021-05-22] MEDS ORDERED: HYDROCODONE/APAP 5/325 MG TAB ONE (23:25)
--- NOTE | 2021-05-23 01:32 | RAD REPORT ---
EXAM DESCRIPTION: RAD - Hand Right 3 View - 05/22/2021 11:42 pm CLINICAL HISTORY: Swelling;Pain COMPARISON: Hand Right 3 View dated 07/25/2017 FINDINGS: Mild soft tissue swelling affects the third finger. The bones are demineralized. Absence o f the majority of the distal phalanges is noted, unchanged.
--- NOTE | 2021-05-23 02:34 | EDPHYS ---
Physician Documentation [facility] Name: Lissa Rivas Age: 60 yrs Sex: Female : 1960 Arrival Date: 05/22/2021 Time: 21:34 Bed 27 Private MD: ED Physician Ahmet Delgado HPI: 05/22 23:10 This 60 yrs old Black Female presents to ER via Ambulatory with complaints of Hand mh7 Swelling, PT HAS H/O RAYNAUD'S SYNDROME, SWELLING/PAIN IN RT HAND, VERY LIMITED MOBILITY. 23:10 The patient or guardian reports pain, swelling. The complaints affect the right hand, mh7 middle finger tip. Context: The problem was sustained at home, resulted from an unknown cause. Onset: The symptoms/episode began/occurred today. Modifying factors: The symptoms are alleviated by nothing, the symptoms are aggravated by touching area. Associated signs and symptoms: Pertinent negatives: cyanosis distally, decreased sensation distally, fever, nausea, numbness distally, tingling distally, vomiting. Severity of symptoms: At their worst the symptoms were moderate, earlier today, in the emergency department the symptoms have improved, mildly. History of Raynaud's with pain swelling to the tip of her right middle finger after using nail file earlier today.. Historical: - Allergies: 21:59 No Known Allergies; lg3 - Home Meds: 21:59 Iron CR Oral [Active]; lg3 - PMHx: 21:59 Raynauds; lg3 - PSHx: 21:59 None; lg3 - Immunization history:: Adult Immunizations up to date, Client reports receiving the 2nd dose of the Covid vaccine, moderna X3. - Social history:: Smoking status: Patient denies any tobacco usage or history of. Patient uses alcohol, but reports only rare drinking. Patient/guardian denies using street drugs. ROS: 23:10 Constitutional: Negative for fever, chills, and weight loss, Eyes: Negative for injury, mh7 pain, redness, and discharge, ENT: Negative for injury, pain, and discharge, Neck: Negative for injury, pain, and swelling, Cardiovascular: Negative for chest pain, palpitations, and edema, Respiratory: Negative for shortness of breath, cough, wheezing, and pleuritic chest pain, Abdomen/GI: Negative for abdominal pain, nausea, vomiting, diarrhea, and constipation, Back: Negative for injury and pain, : Negative for injury, bleeding, discharge, and swelling, Skin: Negative for injury, rash, and discoloration, Neuro: Negative for headache, weakness, numbness, tingling, and seizure, Psych: Negative for depression, anxiety, suicide ideation, homicidal ideation, and hallucinations, Allergy/Immunology: Negative for hives, rash, and allergies, Endocrine: Negative for neck swelling, polydipsia, polyuria, polyphagia, and marked weight changes, Hematologic/Lymphatic: Negative for swollen nodes, abnormal bleeding, and unusual bruising. Exam: 23:10 Constitutional: This is a well developed, well nourished patient who is awake, alert, mh7 and in no acute distress. Head/Face: Normocephalic, atraumatic. Eyes: Pupils equal round and reactive to light, extra-ocular motions intact. Lids and lashes normal. Conjunctiva and sclera are non-icteric and not injected. Cornea within normal limits. Periorbital areas with no swelling, redness, or edema. Neck: Trachea midline, no thyromegaly or masses palpated, and no cervical lymphadenopathy. Supple, full range of motion without nuchal rigidity, or vertebral point tenderness. No Meningismus. Chest/axilla: Normal chest wall appearance and motion. Nontender with no deformity. No lesions are appreciated. Cardiovascular: Regular rate and rhythm with a normal S1 and S2. No gallops, murmurs, or rubs. Normal PMI, no JVD. No pulse deficits. Respiratory: Lungs have equal breath sounds bilaterally, clear to auscultation and percussion. No rales, rhonchi or wheezes noted. No increased work of breathing, no retractions or nasal flaring. Abdomen/GI: Soft, non-tender, with normal bowel sounds. No distension or tympany. No guarding or rebound. No evidence of tenderness throughout. Back: No spinal tenderness. No costovertebral tenderness. Full range of motion. Skin: Warm, dry with normal turgor. Normal color with no rashes, no lesions, and no evidence of cellulitis. Neuro: Awake and alert, GCS 15, oriented to person, place, time, and situation. Cranial nerves II-XII grossly intact. Motor strength 5/5 in all extremities. Sensory grossly intact. Cerebellar exam normal. Normal gait. Psych: Awake, alert, with orientation to person, place and time. Behavior, mood, and affect are within normal limits. Vital Signs: 21:57 BP 160 / 96; Pulse 99; Resp 17 S; Temp 98.1(O); Pulse Ox 100% on R/A; Weight 98.43 kg lg3 (R); Height 5 ft. 7 in. (170.18 cm) (R); Pain 5/10; 22:26 BP 149 / 81; Pulse 103; Resp 18; Pulse Ox 100% ; Pain 5/10; al4 23:15 BP 146 / 72; Pulse 87; Resp 19 S; Pulse Ox 100% on R/A; al4 05/23 00:15 BP 150 / 75; Pulse 82; Resp 18 S; Pulse Ox 96% on R/A; al4 01:30 BP 138 / 59; Pulse 83; Resp 18 S; Pulse Ox 100% on R/A; Pain 2/10; al4 02:30 BP 153 / 83; Pulse 89; Resp 18 S; Pulse Ox 100% on R/A; al4 05/22 21:57 Body Mass Index 33.99 (98.43 kg, 170.18 cm) lg3 MDM: 02:29 Differential diagnosis: dislocation, closed fracture, contusion, abrasion. Data [facility] reviewed: vital signs, nurses notes, radiologic studies, plain films. Data interpreted: Pulse oximetry: on room air is 100 %. Interpretation: normal. Counseling: I had a detailed discussion with the patient and/or guardian regarding: the historical points, exam findings, and any diagnostic results supporting the discharge/admit diagnosis, radiology results, the need for outpatient follow up, a hand specialist, a mds manager, to return to the emergency department if symptoms worsen or persist or if there are any questions or concerns that arise at home. Response to treatment: the patient's symptoms have markedly improved after treatment. 02:33 Patient medically screened. [facility] 05/22 22:40 Order name: Hand Right 3 View XRAY; Complete Time: 02:24 [facility] Administered Medications: 05/22 23:30 Drug: [place] (HYDROcodone-acetaminophen) 5 mg-325 mg 1 tabs Route: PO; al4 05/23 00:00 Follow up: Response: No adverse reaction; Pain is decreased; RASS: Alert and Calm (0) al4 Disposition Summary: 05/23/21 02:33 Discharge Ordered Location: Home [facility] Problem: an acute exacerbation [facility] Symptoms: have improved [facility] Condition: Stable [facility] Diagnosis - Pain in right finger(s) [facility] - Raynaud's syndrome without gangrene [facility] Followup: [facility] - With: Private Physician - When: 1 - 2 days - Reason: Worsening of condition, Recheck today's complaints, Continuance of care, Re-evaluation by your physician Followup: [facility] - With: Travis Wade MD - When: 2 - 3 days - Reason: Worsening of condition, Recheck today's complaints Discharge Instructions: - Discharge Summary Sheet [facility] - Raynaud Phenomenon [facility] - Acute Pain, Adult [facility] Forms: - Medication Reconciliation Form [facility] - Thank You Letter [facility] - Antibiotic Education [facility] - Prescription Opioid Use [facility] Prescriptions: - Ibuprofen 800 mg Oral Tablet - take 1 tablet by ORAL route every 8 hours As needed take with food; 15 tablet; [facility] Refills: 0, Product Selection Permitted - Cephalexin 500 mg Oral Capsule - take 1 capsule by ORAL route every 8 hours for 7 days; 21 capsule; Refills: 0, [facility] Product Selection Permitted Signatures: Dispatcher [employer] Lisa Tam RN RN lg3 Ahmet Delgado MD MD 7 Bismark Egan al4 Corrections: (The following items were deleted from the chart) 05/22 22:01 21:59 Allergies: Cymbalta; lg3 lg3 22:01 21:59 Home Meds: None; lg3 lg3
--- NOTE | 2021-05-23 02:34 | ER ---
Nurse's Notes [facility] Name: Lissa Rivas Age: 60 yrs Sex: Female : 1960 Arrival Date: 05/22/2021 Time: 21:34 Bed 27 Private MD: Diagnosis: Pain in right finger(s);Raynaud's syndrome without gangrene Presentation: 05/22 21:57 Chief complaint: Patient states: right hand middle finger swelling. discoloration lg3 noted. history of Raynaud's disease. swelling/pain started today. Coronavirus screen: Client denies travel out of the [place] in the last 14 days. At this time, the client does not indicate any symptoms associated with coronavirus-19. Ebola Screen: No symptoms or risks identified at this time. Initial Sepsis Screen: Does the patient have a suspected source of infection? No. Patient's initial sepsis screen is negative. Risk Assessment: Do you want to hurt yourself or someone else? Patient reports no desire to harm self or others. Onset of symptoms was May 22, 2021. 21:57 Method Of Arrival: Ambulatory lg3 21:57 Acuity: JAMMIE 3 lg3 05/23 01:38 Initial Sepsis Screen: Does the patient meet any 2 criteria? No. Patient's initial al4 sepsis screen is negative. Triage Assessment: 05/22 21:59 General: Appears in no apparent distress. comfortable, Behavior is calm, cooperative. lg3 Pain: Complains of pain in right middle finger. EENT: No deficits noted. No signs and/or symptoms were reported regarding the EENT system. Neuro: No deficits noted. Level of Consciousness is awake, alert, obeys commands, Oriented to person, place, time, situation. Cardiovascular: No deficits noted. Denies chest pain, shortness of breath. Respiratory: No deficits noted. Airway is patent Trachea midline Respiratory effort is even, unlabored, Respiratory pattern is regular, symmetrical. GI: No deficits noted. No signs and/or symptoms were reported involving the gastrointestinal system. : No deficits noted. No signs and/or symptoms were reported regarding the genitourinary system. Derm: Skin is intact, Skin is dry. Musculoskeletal: No deficits noted. Circulation, motion, and sensation intact. Range of motion: limited in DIP of right middle finger and PIP of right middle finger. Historical: - Allergies: 21:59 No Known Allergies; lg3 - Home Meds: 21:59 Iron CR Oral [Active]; lg3 - PMHx: 21:59 Raynauds; lg3 - PSHx: 21:59 None; lg3 - Immunization history:: Adult Immunizations up to date, Client reports receiving the 2nd dose of the Covid vaccine, moderna X3. - Social history:: Smoking status: Patient denies any tobacco usage or history of. Patient uses alcohol, but reports only rare drinking. Patient/guardian denies using street drugs. Screenin:03 Abuse screen: Denies threats or abuse. Denies injuries from another. Nutritional lg3 screening: No deficits noted. Tuberculosis screening: No symptoms or risk factors identified. Fall Risk None identified. Assessment: 22:24 General: Appears in no apparent distress. uncomfortable, Behavior is calm, cooperative, al4 right middle finger discolored with swelling noted. Pain: Complains of pain in palmar aspect of distal phalanx of right middle finger, palmar aspect of middle phalanx of right middle finger and palmar aspect of proximal phalanx of right middle finger Pain radiates to right wrist Pain currently is 5 out of 10 on a pain scale. Neuro: Level of Consciousness is awake, alert, obeys commands, Oriented to person, place, time, situation. Cardiovascular: Capillary refill < 3 seconds Patient's skin is warm and dry. Pulses are 2+ in right radial artery and left radial artery. Respiratory: Airway is patent Respiratory effort is unlabored, Respiratory pattern is regular. Musculoskeletal: Circulation, motion, and sensation intact. 23:23 Reassessment: Patient is alert, oriented x 3, equal unlabored respirations, skin al4 warm/dry/pink. 05/23 00:30 Reassessment: Patient is alert, oriented x 3, equal unlabored respirations, skin al4 warm/dry/pink. 01:30 Reassessment: Patient is alert, oriented x 3, equal unlabored respirations, skin al4 warm/dry/pink. 02:13 Reassessment: Patient and/or family updated on plan of care and expected duration. Pain al4 level reassessed. Patient is alert, oriented x 3, equal unlabored respirations, skin warm/dry/pink. Patient denies pain at this time. 02:48 Reassessment: Patient discharged with ride from daughter. al4 Vital Signs: 05/22 21:57 BP 160 / 96; Pulse 99; Resp 17 S; Temp 98.1(O); Pulse Ox 100% on R/A; Weight 98.43 kg lg3 (R); Height 5 ft. 7 in. (170.18 cm) (R); Pain 5/10; 22:26 BP 149 / 81; Pulse 103; Resp 18; Pulse Ox 100% ; Pain 5/10; al4 23:15 BP 146 / 72; Pulse 87; Resp 19 S; Pulse Ox 100% on R/A; al4 05/23 00:15 BP 150 / 75; Pulse 82; Resp 18 S; Pulse Ox 96% on R/A; al4 01:30 BP 138 / 59; Pulse 83; Resp 18 S; Pulse Ox 100% on R/A; Pain 2/10; al4 02:30 BP 153 / 83; Pulse 89; Resp 18 S; Pulse Ox 100% on R/A; al4 05/22 21:57 Body Mass Index 33.99 (98.43 kg, 170.18 cm) lg3 ED Course: 05/22 21:34 Patient arrived in ED. jj6 21:59 Triage completed. lg3 21:59 Arm band placed on left wrist. lg3 22:18 Ahmet Delgado MD is Attending Physician. mh7 22:24 Bismark Egan is Primary Nurse. al4 22:27 Call light in reach. Pulse ox on. NIBP on. al4 23:44 Hand Right 3 View XRAY In Process Unspecified. EDMS 05/23 02:32 Travis Wade MD is Referral Physician. mh7 02:38 No provider procedures requiring assistance completed. Patient did not have IV access al4 during this emergency room visit. Administered Medications: 05/22 23:30 Drug: [place] (HYDROcodone-acetaminophen) 5 mg-325 mg 1 tabs Route: PO; al4 05/23 00:00 Follow up: Response: No adverse reaction; Pain is decreased; RASS: Alert and Calm (0) al4 Outcome: 02:33 Discharge ordered by . 7 02:48 Discharged to home ambulatory, with family. al4 02:48 Condition: stable 02:48 Discharge instructions given to patient, family, Instructed on discharge instructions, follow up and referral plans. medication usage, Demonstrated understanding of instructions, follow-up care, medications, Prescriptions given X 1. 02:49 Patient left the ED. al4 Signatures: Dispatcher [employer] EDLisa Morrison, RN RN lg3 Ahmet Delgado MD MD 7 Cheryl Velázquez6 Bismark Egan al4 Corrections: (The following items were deleted from the chart) 05/22 22:01 21:59 Allergies: Cymbalta; lg3 lg3 22:01 21:59 Home Meds: None; lg3 lg3 23:25 22:24 General: Appears in no apparent distress. uncomfortable, Behavior is calm, al4 cooperative, al4 23:38 23:15 BP 146 / 72; Pulse 87bpm; Resp 18bpm; Spontaneous; Pulse Ox 100% RA; al4 al4 05/23 02:15 02:13 Reassessment: Patient and/or family updated on plan of care and expected al4 duration. Pain level reassessed. Patient is alert, oriented x 3, equal unlabored respirations, skin warm/dry/pink. al4
[2021-05-23 04:00] VITALS: TEMP 98.1
[2021-05-23 04:05] VITALS: O2SAT 100
[2021-05-23 04:06] VITALS: BP 153/83
== END 2021-05-23 02:49 | disposition home or self-care (01) ==
LOC: ER 21:29
DX: I73.00 Raynaud's syndrome without gangrene (principal)
CPT/HCPCS: 99284